=== PATIENT | female | born 1990 ===

== ENCOUNTER 2018-03-29 14:07 | Emergency (ER) | payer SELFPAY ==
[2018-03-29] MEDS ORDERED: Sodium Chloride 0.9% 1,000 ML IV STA (14:59)
--- NOTE | 2018-03-29 15:03 | ED PDOC ---
Arrival/HPI - General Time Seen by Provider: 03/29/18 14:45 Historian: Patient - History of Present Illness Narrative History of Present Illness (Text): 03/29/18 15:00 27yo female with no PMhx who present with complaint of nonbloody/billious vomiting x 10 and 2episodes of diarrhea with crampy abdominal pain since this morning. Notes that she ate outside, the night prior and thinks she have "food poison". +chills. States she is unable to keep anything down. Denies fever, melena, hematemesis, hematochezia, sick contact, travel, urinary symptoms. Past Medical History - Provider Review Nursing Documentation Reviewed: Yes - Past History Past History: No Previous - Tetanus Immunization Tetanus Immunization: Unknown - Musculoskeletal/Rheumatological Hx Falls: No - Psychiatric Hx Substance Use: No - Past Surgical History Past Surgical History: No Previous - Suicidal Assessment Feels Threatened In Home Enviroment: No Family/Social History - Physician Review Nursing Documentation Reviewed: Yes Family/Social History: Unknown Family HX Smoking Status: Never Smoked Hx Alcohol Use: No Hx Substance Use: No Hx Substance Use Treatment: No Allergies/Home Meds Allergies/Adverse Reactions: Allergies No Known Allergies Allergy (Verified 12/22/12 12:36) Review of Systems - Physician Review All systems were reviewed & negative as marked: Yes - Review of Systems Constitutional: Normal Eyes: Normal ENT: Normal Respiratory: Normal Cardiovascular: Normal Gastrointestinal: Abdominal Pain, Diarrhea, Nausea, Vomiting. absent: Constipation, Hematochezia, Hematemesis Genitourinary Female: Normal Musculoskeletal: Normal Skin: Normal Neurological: Normal Endocrine: Normal Hemo/Lymphatic: Normal Psychiatric: Normal Physical Exam Vital Signs Reviewed: Yes Vital Signs Temp Pulse Resp BP Pulse Ox 03/29/18 19:13 63 18 118/67 100 03/29/18 16:16 61 18 122/65 100 03/29/18 15:07 98.4 F 64 18 124/66 100 03/29/18 14:30 98.2 F 80 18 119/77 99 Temperature: Afebrile Blood Pressure: Normal Pulse: Regular Respiratory Rate: Normal Appearance: Positive for: Well-Appearing, Non-Toxic, Comfortable Pain Distress: None Mental Status: Positive for: Alert and Oriented X 3 - Systems Exam Head: Present: Atraumatic, Normocephalic Pupils: Present: PERRL Extroacular Muscles: Present: EOMI Conjunctiva: Present: Normal Mouth: Present: Moist Mucous Membranes Neck: Present: Normal Range of Motion Respiratory/Chest: Present: Clear to Auscultation, Good Air Exchange. No: Respiratory Distress, Accessory Muscle Use Cardiovascular: Present: Regular Rate and Rhythm, Normal S1, S2. No: Murmurs Abdomen: Present: Tenderness (Diffuse upper abdomen), Normal Bowel Sounds, Guarding (voluntary), Other (soft). No: Distention, Peritoneal Signs, Rebound, McBurney's Point Tender, Rovsing's Sign Present Back: Present: Normal Inspection Upper Extremity: Present: Normal Inspection. No: Cyanosis, Edema Lower Extremity: Present: Normal Inspection. No: Edema Neurological: Present: GCS=15, CN II-XII Intact, Speech Normal Skin: Present: Warm, Dry, Normal Color. No: Rashes Psychiatric: Present: Alert, Oriented x 3, Normal Insight, Normal Concentration Medical Decision Making ED Course and Treatment: 03/29/18 20:05 Pt presented for stated history. Lwukocytosis was noted with UTI. Her symptoms improved in ED with medication. She was noted to tolerate PO fluid in ED. Result was DW the pt. she was treated with keflex for UTI. Antitussive was given. she was advised to follow BRAT diet. REferred to her PMD. TRT ED for any new or worsening symptoms. ABDOMEN and PELVIS: Intraperitoneal space: Unremarkable. No free air. No significant fluid collection. Bones/joints: Mild scoliosis No acute fracture. No dislocation. Soft tissues: Unremarkable. Vasculature: Unremarkable. No abdominal aortic aneurysm. Lymph nodes: There are small, benign-appearing lymph nodes, probably reactive, most measuring 1 cm or smaller in the short axis. IMPRESSION: Compatible with a moderate pattern colitis in the correct clinical situation. Statistically, infectious or inflammatory. Ischemia cannot be excluded. No abscess. Cystitis is possible - Lab Interpretations Lab Results: 03/29/18 15:45 03/29/18 15:45 Lab Results 03/29/18 15:45: Sodium 142, Potassium 3.6, Chloride 101, Carbon Dioxide 26, Anion Gap 18, BUN 12, Creatinine 0.6 L, Est GFR ( Amer) > 60, Est GFR ( Non-Af Amer) > 60, Random Glucose 135 H, Calcium 9.8, Total Bilirubin 0.6, AST 26, ALT 25, Alkaline Phosphatase 69, Total Protein 8.0, Albumin 4.7, Globulin 3.2, Albumin/Globulin Ratio 1.5, Lipase 103 03/29/18 15:45: PT 12.4, INR 1.09 H, APTT 22.9 L 03/29/18 15:45: WBC 20.4 H, RBC 4.47, Hgb 14.0, Hct 40.1, MCV 89.7, MCH 31.3, MCHC 34.9, RDW 12.2, Plt Count 305, MPV 10.5, Gran % 93.0 H, Lymph % (Auto) 4.5 L, [place] % (Auto) 2.5, Eos % (Auto) 0.0 L, Baso % (Auto) 0.0, Gran # 18.98 H, Lymph # (Auto) 0.9 L, [place] # (Auto) 0.5, Eos # (Auto) 0.0, Baso # (Auto) 0.01, Neutrophils % (Manual) 94 H, Lymphocytes % (Manual) 3 L, Monocytes % (Manual) 3 , Platelet Evaluation Normal 03/29/18 13:36: Urine Color Yellow, Urine Appearance Cloudy, Urine pH 6.0, Ur Specific [place] >= 1.030, Urine Protein 100 H, Urine Glucose (UA) Negative, Urine Ketones >=80, Urine Blood Large H, Urine Nitrate Positive H, Urine Bilirubin Negative, Urine Urobilinogen 0.2, Ur Leukocyte Esterase Moderate H, Urine RBC 2 - 5, Urine WBC 20 - 25, Ur Epithelial Cells 6 - 8, Urine Bacteria Mod - RAD Interpretation Radiology Orders: 03/29/18 16:00 ABD & PELVIS IV CONTRAST ONLY [CT] Stat - Medication Orders Current Medication Orders: Discontinued Medications Cephalexin Monohydrate (Keflex) 500 mg PO STAT STA PRN Reason: Protocol Stop: 03/29/18 20:09 Last Admin: 03/29/18 20:43 Dose: 500 mg Sodium Chloride (Sodium Chloride 0.9%) 1,000 mls @ 1,000 mls/hr IV .Q1H STA Stop: 03/29/18 15:58 Last Admin: 03/29/18 15:56 Dose: 1,000 mls/hr eMAR Start Stop Document 03/29/18 15:56 LA (Rec: 03/29/18 16:02 LA [id number]) Intravenous Solution Start Date 03/29/18 Start Time 15:57 End Date 03/29/18 End time 16:57 Total Infusion Time 60 Famotidine (Pepcid 20mg/50ml Premix) 20 mg in 50 mls @ 100 mls/hr IVPB STAT STA Stop: 03/29/18 16:56 Last Admin: 03/29/18 16:39 Dose: 100 mls/hr eMAR Start Stop Document 03/29/18 16:39 LA (Rec: 03/29/18 16:39 LA [id number]) Intravenous Solution Start Date 03/29/18 Start Time 16:39 End Date 03/29/18 End time 17:09 Total Infusion Time 30 Metoclopramide HCl (Reglan) 10 mg IVP STAT STA Stop: 03/29/18 20:29 Last Admin: 03/29/18 20:42 Dose: 10 mg IVP Administration Document 03/29/18 20:42 LA (Rec: 03/29/18 20:42 LA [id number]) Charges for Administration # of IVP Administrations 1 Morphine Sulfate (Morphine) 2 mg IV STAT STA Stop: 03/29/18 20:23 Last Admin: 03/29/18 20:42 Dose: 2 mg eMAR Start Stop Document 03/29/18 20:42 LA (Rec: 03/29/18 20:43 LA [id number]) Intravenous Solution Start Date 03/29/18 Start Time 20:42 End Date 03/29/18 MAR Pain Assessment Document 03/29/18 20:42 LA (Rec: 03/29/18 20:43 LA [id number]) Pain Reassessment Is this a pain reassessment? No Sleep Is patient sleeping during reassessment? No Presence of Pain Presence of Pain Yes Pain Scale Used Pain Scale Used Numeric Location Pain Location Body Site Abdomen Description Description Intermittent Pain Behavior Guarding Ondansetron HCl (Zofran Inj) 4 mg IVP STAT STA Stop: 03/29/18 15:00 Last Admin: 03/29/18 15:55 Dose: 4 mg IVP Administration Document 03/29/18 15:55 LA (Rec: 03/29/18 15:55 LA [id number]) Charges for Administration # of IVP Administrations 1 Ondansetron HCl (Zofran Inj) 4 mg IVP STAT STA Stop: 03/29/18 19:26 Last Admin: 03/29/18 19:52 Dose: 4 mg IVP Administration Document 03/29/18 19:52 LIBIA (Rec: 03/29/18 19:52 LA [id number]) Charges for Administration # of IVP Administrations 1 Disposition/Present on Arrival - Present on Arrival Any Indicators Present on Arrival: No History of DVT/PE: No History of Uncontrolled Diabetes: No Urinary Catheter: No History Surgical Site Infection Following: None - Disposition Have Diagnosis and Disposition been Completed?: Yes Diagnosis: UTI (urinary tract infection), Colitis, Abdominal pain Disposition: HOME/ ROUTINE Disposition Time: 20:10 Patient Plan: Discharge Condition: STABLE Discharge Instructions (ExitCare): Urinary Tract Infections in Adults, Acute Abdomen (Belly Pain), Adult (DC), Nausea and Vomiting, Adult Additional Instructions: Follow BLAND diet and drink plenty of fluid Return to ED for any new or worsening symptoms Prescriptions: Cephalexin [Keflex] 500 mg PO QID #28 capsule Famotidine [Pepcid] 40 mg PO DAILY #15 tab Ondansetron ODT [Zofran ODT] 4 mg PO Q6 #8 odt Referrals: Jami Prather MD [Primary Care Provider] - Follow up with primary Forms: WORK NOTE
[2018-03-29 15:16] VITALS: RESP 18; TEMP 98.4; O2SAT 100; BMI 30.9
[2018-03-29 15:56] LABS: URINE BILIRUBIN NEGATIVE (NEGATIVE); URINE BLOOD LARGE (NEGATIVE); URINE GLUCOSE (UA) NEGATIVE (NEGATIVE); URINE LEUKOCYTE ESTERASE MODERATE Leu/uL (NEGATIVE); URINE PROTEIN 100 mg/dL (<30 mg/dL); URINE UROBILINOGEN 0.2 E.U./dL (<1 E.U./dL)
[2018-03-29 15:57] LABS: URINE APPEARANCE CLOUDY (CLEAR); URINE COLOR YELLOW (YELLOW)
[2018-03-29 15:59] LABS: URINE BACTERIA MOD (NEG); URINE WBC 20 - 25 /hpf (0-6)
[2018-03-29 15:59] LABS: BASO # 0.01 K/mm3 (0.0-2.0); GRAN # 18.98 (1.4-6.5); LYMPH # 0.9 (1.2-3.4); LYMPH % 4.5 % (22.0-35.0); MEAN CELL VOLUME 89.7 fl (80.0-105.0); MEAN CORPUSCULAR HEMOGLOBIN 31.3 pg (25.0-35.0); MEAN CORPUSCULAR HGB CONC 34.9 g/dl (31.0-37.0); MEAN PLATELET VOLUME 10.5 fl (7.0-11.0); MONO # 0.5 (0.1-0.6); MONO % 2.5 % (1.0-6.0); PLATELET COUNT 305 10^3/uL (120.0-450.0); RBC 4.47 10^6/uL (3.5-6.1); RED CELL DISTRIBUTION WIDTH 12.2 % (11.5-14.5); WHITE BLOOD COUNT 20.4 10^3/ul (4.5-11.0)
[2018-03-29 16:08] LABS: INR 1.09 (0.93-1.08); PARTIAL THROMBOPLASTIN TIME 22.9 Seconds (25.1-36.5); PROTHROMBIN TIME 12.4 SECONDS (9.4-12.5)
[2018-03-29 16:13] LABS: ALB/GLOB RATIO 1.5 (1.1-1.8); ALBUMIN 4.7 g/dL (3.0-4.8); ALT/SGPT 25 U/L (7-56); AST/SGOT 26 U/L (14-36); BLOOD UREA NITROGEN 12 mg/dL (7-21); CALCIUM 9.8 mg/dL (8.4-10.5); GFR AFRICAN-AMERICAN > 60; GFR NON-AFRICAN AMERICAN > 60; LIPASE 103 U/L (23-300)
[2018-03-29 16:14] LABS: LYMPHOCYTE 3 % (22.0-35.0); MONOCYTE 3 % (1.0-6.0); NEUTROPHIL 94 % (50.0-70.0)
[2018-03-29 16:15] LABS: PLATELET ESTIMATE NORMAL (NORMAL)
[2018-03-29] MEDS ORDERED: Famotidine 20mg/50ml 20 MG/50 ML BAG IVPB STA (16:27)
[2018-03-29] MEDS ORDERED: Iohexol 350 MG/100 ML VIAL ONE (17:51)
[2018-03-29 19:13] VITALS: BP 118/67; PULSE 63
[2018-03-29] MEDS ORDERED: Morphine 2 mg/ml ISec IVP STA (20:19)
[2018-03-29] MEDS ORDERED: Morphine 4 mg/ml ISec IV STA (20:22)
--- NOTE | 2018-03-30 08:20 | CT ---
PROCEDURE: CT Abdomen and Pelvis with contrast HISTORY: abdominal pain COMPARISON: None. TECHNIQUE: Contrast dose: 100 cc of Omni 350 Radiation dose: Total exam DLP = 216 mGy-cm. This CT exam was performed using one or more of the following dose reduction techniques: Automated exposure control, adjustment of the mA and/or kV according to patient size, and/or use of iterative reconstruction technique. FINDINGS: LOWER THORAX: Unremarkable. LIVER: Unremarkable. No gross lesion or ductal dilatation. GALLBLADDER AND BILE DUCTS: Unremarkable. PANCREAS: Unremarkable. No gross lesion or ductal dilatation. SPLEEN: Unremarkable. ADRENALS: Unremarkable. No mass. KIDNEYS AND URETERS: Unremarkable. No hydronephrosis. No solid mass. VASCULATURE: Unremarkable. No aortic aneurysm. BOWEL: There is no oral contrast which limits evaluation of the bowel. There is a suggestion of mural thickening throughout the colon suspicious for colitis. Clinical correlation is suggest APPENDIX: Normal appendix. PERITONEUM: There is minimal free fluid in the cul-de-sac LYMPH NODES: Unremarkable. No enlarged lymph nodes. BLADDER: There is mild mural thickening. This could represent cystitis. REPRODUCTIVE: Unremarkable. BONES: No acute fracture. OTHER FINDINGS: The report concurs with the preliminary [facility] report IMPRESSION: There is no oral contrast which limits evaluation of the bowel. There is a suggestion of mural thickening throughout the colon suspicious for colitis. Clinical correlation is suggest Mild mural thickening in the urinary bladder. Possible cystitis
== END 2018-03-29 20:55 | disposition home or self-care (01) ==
LOC: ED 14:07
DX: N39.0 Urinary tract infection, site not specified (principal); K52.9 Noninfective gastroenteritis and colitis, unspecified; R10.9 Unspecified abdominal pain
CPT/HCPCS: 74177; 80053; 81001; 83690; 85025; 85610; 85730; 87086; 96361; 96365; 96375; 96376; 99284; J2270; J2405; J2765; J7040; Q9967

== ENCOUNTER 2018-10-24 18:29 | Emergency (ER) | payer SELFPAY ==
[2018-10-24 18:58] VITALS: BMI 25.9
[2018-10-24 19:01] VITALS: RESP 18; TEMP 98.1
[2018-10-24] MEDS ORDERED: Sodium Chloride 0.9% 1,000 ML IV STA (19:07)
[2018-10-24 20:25] LABS: BASO # 0.01 K/mm3 (0.0-2.0); BASO % 0.1 % (0.0-3.0); GRAN # 16.57 (1.4-6.5); GRAN % 94.1 % (50.0-68.0); LYMPH # 0.8 (1.2-3.4); LYMPH % 4.4 % (22.0-35.0); MEAN CELL VOLUME 90.4 fl (80.0-105.0); MEAN CORPUSCULAR HEMOGLOBIN 31.1 pg (25.0-35.0); MEAN CORPUSCULAR HGB CONC 34.4 g/dl (31.0-37.0); MEAN PLATELET VOLUME 9.9 fl (7.0-11.0); MONO # 0.3 (0.1-0.6); MONO % 1.4 % (1.0-6.0); PLATELET COUNT 292 10^3/uL (120.0-450.0); RBC 4.18 10^6/uL (3.5-6.1); RED CELL DISTRIBUTION WIDTH 12.3 % (11.5-14.5); WHITE BLOOD COUNT 17.6 10^3/uL (4.5-11.0)
[2018-10-24 20:29] LABS: URINE APPEARANCE CLEAR (CLEAR); URINE BILIRUBIN NEGATIVE (NEGATIVE); URINE BLOOD TRACE-INTACT (NEGATIVE); URINE COLOR YELLOW (YELLOW); URINE GLUCOSE (UA) NEGATIVE (NEGATIVE); URINE LEUKOCYTE ESTERASE NEGATIVE Leu/uL (NEGATIVE); URINE PROTEIN TRACE mg/dL (<30 mg/dL); URINE UROBILINOGEN 0.2 E.U./dL (<1 E.U./dL)
[2018-10-24 20:36] LABS: ALB/GLOB RATIO 1.4 (1.1-1.8); ALBUMIN 4.6 g/dL (3.0-4.8); ALT/SGPT 32 U/L (7-56); AMYLASE 109 U/L (35-125); AST/SGOT 33 U/L (14-36); BLOOD UREA NITROGEN 16 mg/dL (7-21); CALCIUM 9.3 mg/dL (8.4-10.5); GFR NON-AFRICAN AMERICAN > 60; LIPASE 41 U/L (23-300)
[2018-10-24 20:37] LABS: URINE RBC 0 - 2 /hpf (0-2); URINE WBC NEGATIVE /hpf (0-6)
[2018-10-24] MEDS ORDERED: Iohexol 350 MG/100 ML VIAL ONE (20:47)
[2018-10-24 21:06] LABS: LYMPHOCYTE 5 % (22.0-35.0); MONOCYTE 2 % (1.0-6.0); NEUTROPHIL 93 % (50.0-70.0)
[2018-10-24 21:07] LABS: PLATELET ESTIMATE NORMAL (NORMAL)
[2018-10-24 23:11] VITALS: BP 128/78; PULSE 82; O2SAT 99
--- NOTE | 2018-10-25 00:59 | ED PDOC ---
Arrival/HPI - General Chief Complaint: Abdominal Pain Historian: Patient - History of Present Illness Narrative History of Present Illness (Text): 10/24/18 19:00 28 year old female, with no significant past medical history, who presents to the Emergency department complaining of diffuse abdominal pain, vomiting x1 day, and 2-3 episodes of diarrhea. Patient denies any blood in stool or vomit. Patient states she has had episodes similar to this in past. Patient states she does not take any medication for her stomach. Patient denies recent travel, feve r, dysuria, hematuria, or any other complaints. Time/Duration: 24 hours (patient notes vomiting x1 day), Other (patient notes diffuse abdominal pain and 2-3 episodes of diarrhea ) Symptom Onset: Sudden Symptom Course: Unchanged Activities at Onset: Light Past Medical History - Provider Review Nursing Documentation Reviewed: Yes - Travel History Have you recently traveled outside [place] w/in the past 3 mons?: No - Past History Past History: No Previous - Infectious Disease Hx of Infectious Diseases: None - Tetanus Immunization Tetanus Immunization: Unknown - Cardiac Hx Cardiac Disorders: No - Pulmonary Hx Respiratory Disorders: No - Neurological Hx Neurological Disorder: No - HEENT Hx HEENT Disorder: No - Renal Hx Renal Disorder: No - Endocrine/Metabolic Hx Endocrine Disorders: No - Hematological/Oncological Hx Blood Disorders: No - Integumentary Hx Dermatological Disorder: No - Musculoskeletal/Rheumatological Hx Musculoskeletal Disorders: No - Gastrointestinal Hx Gastrointestinal Disorders: No - Genitourinary/Gynecological Hx Genitourinary Disorders: No - Psychiatric Hx Psychophysiologic Disorder: No Hx Substance Use: No - Past Surgical History Past Surgical History: No Previous - Anesthesia Hx Anesthesia: No - Suicidal Assessment Feels Threatened In Home Enviroment: No Family/Social History - Physician Review Nursing Documentation Reviewed: Yes Family/Social History: No Known Family HX Smoking Status: Never Smoked Hx Alcohol Use: No Hx Substance Use: No Hx Substance Use Treatment: No Allergies/Home Meds Allergies/Adverse Reactions: Allergies No Known Allergies Allergy (Verified 10/24/18 18:58) Review of Systems - Physician Review All systems were reviewed & negative as marked: Yes - Review of Systems Constitutional: Normal. absent: Fevers Gastrointestinal: Abdominal Pain (Patient notes diffuse abdominal pain ), Diarrhea (Pt reports 2-3 episodes of diarrhea. no blood in stool. ), Vomiting (Patient notes vomiting x1 day. no blood in vomit. ). absent: Normal Genitourinary Female: Normal. absent: Dysuria, Hematuria Physical Exam Vital Signs Reviewed: Yes Vital Signs Temp Pulse Resp BP Pulse Ox 10/24/18 23:06 98.1 F 82 18 128/78 99 10/24/18 18:58 98.1 F 81 18 115/70 98 Temperature: Afebrile Blood Pressure: Normal Pulse: Regular Respiratory Rate: Normal Appearance: Positive for: Well-Appearing, Non-Toxic Pain Distress: Mild Mental Status: Positive for: Alert and Oriented X 3 - Systems Exam Head: Present: Atraumatic, Normocephalic Pupils: Present: PERRL Extroacular Muscles: Present: EOMI Conjunctiva: Present: Normal Mouth: Present: Moist Mucous Membranes Neck: Present: Normal Range of Motion Respiratory/Chest: Present: Clear to Auscultation, Good Air Exchange. No: Respiratory Distress, Accessory Muscle Use Cardiovascular: Present: Regular Rate and Rhythm, Normal S1, S2. No: Murmurs Abdomen: Present: Tenderness (diffuse abdominal tenderness. mild distress. actively vomiting. ) Back: Present: Normal Inspection Upper Extremity: Present: Normal Inspection. No: Cyanosis, Edema Lower Extremity: Present: Normal Inspection. No: Edema Neurological: Present: GCS=15, CN II-XII Intact, Speech Normal Skin: Present: Warm, Dry, Normal Color. No: Rashes Psychiatric: Present: Alert, Oriented x 3, Normal Insight, Normal Concentration Medical Decision Making ED Course and Treatment: 10/24/18 19:00 Impression: 28 year old female presents to the Emergency department complaining of diffuse abdominal pain, vomiting x1 day, and 2-3 episodes of diarrhea. Plan: -- CT of Abd/Pelvis IV contrast only -- Labs -- CBC (with differential) -- Pepcid 20mg IVP -- Reglan 10mg IVP -- IV fluids -- Zofran Inj 8mg IVP -- Urine culture -- ED NPO (ED order only) -- POC Urine test -- Influenza A B -- Urinalysis W/Micro -- Reassess and disposition Prior Visits: Notes and results from previous visits were reviewed. Patient was last seen in the emergency department on 03/29/18 with complaint of nonbloody/billious vomiting x 10 and 2episodes of diarrhea with crampy abdominal pain since that morning. Patient was discharged home in stable condition with diagnosis of UTI, colitis and abdominal pain, given diet instructions for care, and directed to follow up with PMD. Prescriptions: Cephalexin [Keflex] 500 mg PO QID #28 capsule Famotidine [Pepcid] 40 mg PO DAILY #15 tab Ondansetron ODT [Zofran ODT] 4 mg PO Q6 #8 odt Progress Notes: 10/24/18 On reevaluation, patient is no longer vomiting and says she feels better. CAT scan reviewed with her. Pt will be discharged with antibiotics and will follow up with PMD. - Lab Interpretations Lab Results: 10/24/18 20:15 10/24/18 20:15 Lab Results 10/24/18 20:15: Influenza Typ A,B (EIA) Negative for flu a/b 10/24/18 20:15: Sodium 141, Potassium 3.6, Chloride 104, Carbon Dioxide 24, Anion Gap 17, BUN 16, Creatinine 0.6 L, Est GFR ( Amer) > 60, Est GFR (Non-Af Amer) > 60, Random Glucose 116 H, Calcium 9.3, Magnesium 1.6 L, Total Bilirubin 0.7, AST 33, ALT 32, Alkaline Phosphatase 74, Total Protein 8.0, Albumin 4.6, Globulin 3.4, Albumin/Globulin Ratio 1.4, Amylase 109, Lipase 41 10/24/18 20:15: Urine Color Yellow, Urine Appearance Clear, Urine pH 6.0, Ur Spe cific [place] >= 1.030, Urine Protein Trace H, Urine Glucose (UA) Negative, Urine Ketones >=80, Urine Blood Trace-intact H, Urine Nitrate Negative, Urine Bilirubin Negative, Urine Urobilinogen 0.2, Ur Leukocyte Esterase Negative, Urine RBC 0 - 2, Urine WBC Negative, Ur Epithelial Cells 1 - 3 10/24/18 20:15: WBC 17.6 H, RBC 4.18, Hgb 13.0, Hct 37.8, MCV 90.4, MCH 31.1, MCHC 34.4, RDW 12.3, Plt Count 292, MPV 9.9, Gran % 94.1 H, Lymph % (Auto) 4.4 L , [place] % (Auto) 1.4, Eos % (Auto) 0.0 L, Baso % (Auto) 0.1, Gran # 16.57 H, Lymph # (Auto) 0.8 L, [place] # (Auto) 0.3, Eos # (Auto) 0.0, Baso # (Auto) 0.01, Neutrophils % (Manual) 93 H, Lymphocytes % (Manual) 5 L, Monocytes % (Manual) 2, Platelet Evaluation Normal - RAD Interpretation Narrative RAD Interpretations (Text): CT of Abd/Pelvis IV contrast only reviewed by radiologist, shows: Exam Date: Oct 24, 2018 9:22:06 PM FINDINGS: LUNG BASES: The lung bases appear clear. No pleural effusions are seen. LIVER: Unremarkable. GALLBLADDER AND BILE DUCTS: The gallbladder appears within normal limits. No radioopaque gallstones are seen. No biliary ductal dilatation is evident. PANCREAS: Unremarkable. SPLEEN: Unremarkable. ADRENAL GLANDS: Unremarkable. KIDNEYS, URETERS, AND BLADDER: The kidneys appear within normal limits. There is no hydronephrosis or hydroureter. No urinary calculi are seen. STOMACH AND BOWEL: Small hiatal hernia is noted. Thick walled fluid filled duodenum and loops of jejunum as well as ileum compatible with enteritis. Thick walled fluid filled colon with thumbprinting is noted with involvement of all segments compatible with diffuse pancolitis. Infectious and inflammatory etiologies are considered. APPENDIX: No evidence of acute appendicitis on CT examination. PERITONEUM: No free fluid. No free air. LYMPH NODES: No lymphadenopathy is evident. REPRODUCTIVE: Uterus and ovaries are unremarkable. VASCULATURE: No evidence of abdominal aortic aneurysm. BONES: No aggressive appearing osseous lesion. No acute osseous pathology evident. MISCELLANEOUS: Small amount of fluid in the pelvic cul-de-sac. IMPRESSION: 1. Small hiatal hernia. 2. Enteritis and pancolitis. Infectious and inflammatory etiologies are considered. 3. Small amount of fluid in the pelvic cul-de-sac. Radiology Orders: 10/24/18 19:32 ABD & PELVIS IV CONTRAST ONLY [CT] Stat Lumber Piler: Radiologist - Medication Orders Current Medication Orders: Discontinued Medications Famotidine (Pepcid) 20 mg IVP STAT STA Stop: 10/24/18 19:08 Last Admin: 10/24/18 19:59 Dose: 20 mg IVP Administration Document 10/24/18 19:59 EQ (Rec: 10/24/18 19:59 EQ [id number]) Charges for Administration # of IVP Administrations 1 Sodium Chloride (Sodium Chloride 0.9%) 1,000 mls @ 1,000 mls/hr IV .Q1H STA Stop: 10/24/18 20:06 Last Admin: 10/24/18 19:58 Dose: 1,000 mls/hr eMAR Start Stop Document 10/24/18 19:58 EQ (Rec: 10/24/18 19:59 EQ [id number]) Intravenous Solution Start Date 10/24/18 Start Time 19:58 Metoclopramide HCl (Reglan) 10 mg IVP STAT STA Stop: 10/24/18 19:48 Last Admin: 10/24/18 19:59 Dose: 10 mg IVP Administration Document 10/24/18 19:59 EQ (Rec: 10/24/18 19:59 EQ [id number]) Charges for Administration # of IVP Administrations 1 Ondansetron HCl (Zofran Inj) 8 mg IVP STAT STA Stop: 10/24/18 19:32 Last Admin: 10/24/18 19:59 Dose: 8 mg IVP Administration Document 10/24/18 19:59 EQ (Rec: 10/24/18 19:59 EQ [id number]) Charges for Administration # of IVP Administrations 1 - Scribe Statement The provider has reviewed the documentation as recorded by the Scribe Carmen Vanessa All medical record entries made by the Scribe were at my direction and personally dictated by me. I have reviewed the chart and agree that the record accurately reflects my personal performance of the history, physical exam, medical decision making, and the department course for this patient. I have also personally directed, reviewed, and agree with the discharge instructions and disposition. Disposition/Present on Arrival - Present on Arrival Any Indicators Present on Arrival: No History of DVT/PE: No History of Uncontrolled Diabetes: No Urinary Catheter: No History of Decub. Ulcer: No History Surgical Site Infection Following: None - Disposition Have Diagnosis and Disposition been Completed?: Yes Diagnosis: Colitis Disposition: HOME/ ROUTINE Disposition Time: 22:25 Condition: IMPROVED Discharge Instructions (ExitCare): Acute Abdomen (Belly Pain), Adult (DC), Nausea and Vomiting, Adult (DC) Additional Instructions: CAMERON MARCANO, thank you for letting us take care of you today. Your provider was El Passafaro DO and you were treated for NAUSEA, ABDOMINAL PAIN. The emergency medical care you received today was directed at your acute symptoms. If you were prescribed any medication, please fill it and take as directed. It may take several days for your symptoms to resolve. Return to the Emergency Department if your symptoms worsen, do not improve, or if you have any other problems. Please contact your doctor or call one of the physicians/clinics you have been referred to that are listed on the Patient Visit Information form that is included in your discharge packet. Bring any paperwork you were given at discharge with you along with any medications you are taking to your follow up visit. Our treatment cannot replace ongoing medical care by a primary care provider outside of the emergency department. Thank you for allowing the [facility] team to be part of your care today. Take all prescribed as directed and follow up with your primary care doctor this week for re-evaluation and further management. Prescriptions: Ciprofloxacin [Cipro] 500 mg PO BID #20 tab Famotidine [Pepcid] 20 mg PO BID #20 tab Metronidazole [Flagyl] 500 mg PO Q8 #30 tablet Ondansetron ODT [Zofran ODT] 8 mg PO Q8 PRN #20 odt PRN Reason: Nausea/Vomiting Referrals: [facility], [Non-Staff] - Follow up with primary Forms: [employer] (Y[place]i)
--- NOTE | 2018-10-25 10:24 | CT ---
Date of service: 10/24/2018 PROCEDURE: CT Abdomen and Pelvis with and without intravenous contrast HISTORY: upper abdominal pain with vomiting COMPARISON: None. TECHNIQUE: Axial images of the abdomen were obtained in the pre contrast, portal venous and delayed phases of enhancement. Coronal and sagittal reformats were generated. Contrast dose: Radiation dose: Total exam DLP = 284.05 mGy-cm. This CT exam was performed using one or more of the following dose reduction techniques: Automated exposure control, adjustment of the mA and/or kV according to patient size, and/or use of iterative reconstruction technique. FINDINGS: LOWER THORAX: Unremarkable. LIVER: Unremarkable. No gross lesion or ductal dilatation. GALLBLADDER AND BILE DUCTS: Unremarkable. PANCREAS: Unremarkable. No gross lesion or ductal dilatation. SPLEEN: Unremarkable. ADRENALS: Unremarkable. No mass. KIDNEYS AND URETERS: Unremarkable. No hydronephrosis. No solid mass. VASCULATURE: Unremarkable. No aortic aneurysm. No aortic atherosclerotic calcification or mural plaque present. BOWEL: Unremarkable. No obstruction. No gross mural thickening. APPENDIX: Normal appendix. PERITONEUM: Unremarkable. No free fluid. No free air. LYMPH NODES: Unremarkable. No enlarged lymph nodes. BLADDER: Unremarkable. REPRODUCTIVE: Unremarkable. BONES: No acute fracture. OTHER FINDINGS: None. IMPRESSION: Unremarkable pre and post contrast enhanced CT of the abdomen and pelvis.
== END 2018-10-24 23:33 | disposition home or self-care (01) ==
LOC: ED 18:29
DX: K52.9 Noninfective gastroenteritis and colitis, unspecified (principal)
CPT/HCPCS: 74177; 80053; 81001; 82150; 83690; 83735; 85025; 87086; 87804; 96374; 96375; 99283; J2405; J2765; J7030; Q9967

== ENCOUNTER 2018-12-14 10:58 | Emergency (ER) | payer MEDICAID ==
[2018-12-14 11:21] VITALS: RESP 18; BMI 26.9
[2018-12-14] MEDS ORDERED: Sodium Chloride 0.9% 1,000 ML IV STA (12:03)
--- NOTE | 2018-12-14 12:11 | ED PDOC ---
Arrival/HPI - General Chief Complaint: GI Problem Time Seen by Provider: 12/14/18 11:11 Historian: Patient - History of Present Illness Narrative History of Present Illness (Text): 12/14/18 12:07 A 28 year old female, with no significant past medical history, A0 (currently 9 weeks ), presents to the emergency department complaining of abdominal pain, vomiting, and diarrhea since this morning. Patient reports she ate a turkey sandwich at [employer] yesterday, however is uncertain if this is what caused symptoms. Also, patient mentions she recently was seen [place] [facility], and was diagnosed with hyperemesis, and also had Ultrasound performed due to . Was given antibiotics as well for UTI, however was not prescribed anti-nausea medication. Patient denies any other complaints at this time. Patient states she has not yet seen her YARD HAND. Time/Duration: Other (symptoms starting this morning.) Past Medical History - Provider Review Nursing Documentation Reviewed: Yes - Past History Past History: No Previous - Infectious Disease Hx of Infectious Diseases: None - Tetanus Immunization Tetanus Immunization: Unknown - Cardiac Hx Cardiac Disorders: No - Pulmonary Hx Respiratory Disorders: No - Neurological Hx Neurological Disorder: No - HEENT Hx HEENT Disorder: No - Renal Hx Renal Disorder: No - Endocrine/Metabolic Hx Endocrine Disorders: No - Hematological/Oncological Hx Blood Disorders: No - Integumentary Hx Dermatological Disorder: No - Musculoskeletal/Rheumatological Hx Musculoskeletal Disorders: No - Gastrointestinal Hx Gastrointestinal Disorders: No - Genitourinary/Gynecological Hx Genitourinary Disorders: No - Psychiatric Hx Psychophysiologic Disorder: No Hx Substance Use: No - Past Surgical History Past Surgical History: No Previous - Anesthesia Hx Anesthesia: No - Suicidal Assessment Feels Threatened In Home Enviroment: No Family/Social History - Physician Review Nursing Documentation Reviewed: Yes Family/Social History: No Known Family HX Smoking Status: Never Smoked Hx Alcohol Use: No Hx Substance Use: No Hx Substance Use Treatment: No Allergies/Home Meds Allergies/Adverse Reactions: Allergies No Known Allergies Allergy (Verified 12/14/18 11:21) Review of Systems - Physician Review All systems were reviewed & negative as marked: Yes - Review of Systems Constitutional: absent: Fevers, Night Sweats Cardiovascular: absent: Chest Pain Gastrointestinal: Abdominal Pain, Nausea, Vomiting Physical Exam Vital Signs Reviewed: Yes Vital Signs Temp Pulse Resp BP Pulse Ox 12/14/18 11:08 97.8 F 74 18 121/78 98 Temperature: Afebrile Blood Pressure: Normal Pulse: Regular Respiratory Rate: Normal Appearance: Positive for: Well-Appearing, Non-Toxic, Comfortable Pain Distress: None Mental Status: Positive for: Alert and Oriented X 3 - Systems Exam Head: Present: Atraumatic, Normocephalic Pupils: Present: PERRL Extroacular Muscles: Present: EOMI Conjunctiva: Present: Normal Mouth: Present: Dry Neck: Present: Normal Range of Motion Respiratory/Chest: Present: Clear to Auscultation, Good Air Exchange. No: Respiratory Distress, Accessory Muscle Use Cardiovascular: Present: Regular Rate and Rhythm, Normal S1, S2. No: Murmurs Abdomen: Present: Tenderness (tenderness to palpation). No: Distention, Peritoneal Signs Back: Present: Normal Inspection. No: CVA Tenderness Upper Extremity: Present: Normal Inspection. No: Cyanosis, Edema Lower Extremity: Present: Normal Inspection. No: Edema Neurological: Present: GCS=15, CN II-XII Intact, Speech Normal Skin: Present: Warm, Dry, Normal Color. No: Rashes Psychiatric: Present: Alert, Oriented x 3, Normal Insight, Normal Concentration Medical Decision Making ED Course and Treatment: 12/14/18 12:10 Impression: 28 year old female with abdominal pain, vomiting, and diarrhea. Plan: -- Labs -- Reglan -- IV Fluids -- Urinalysis -- Reassess and disposition Prior Visits: Notes and results from previous visits were reviewed. Patient was last seen here in the emergency department on 10/24/2018 for diffuse abdominal pain and vomiting. Patient was discharged home. Progress Notes: - Medication Orders Current Medication Orders: Sodium Chloride (Sodium Chloride 0.9%) 1,000 mls @ 999 mls/hr IV .Q1H1M STA Stop: 12/14/18 13:03 Metoclopramide HCl (Reglan) 10 mg IVP STAT STA Stop: 12/14/18 12:05 - Scribe Statement The provider has reviewed the documentation as recorded by the [address] Provider Scribe Attestation: All medical record entries made by the Scribe were at my direction and personally dictated by me. I have reviewed the chart and agree that the record accurately reflects my personal performance of the history, physical exam, medical decision making, and the department course for this patient. I have also personally directed, reviewed, and agree with the discharge instructions and disposition. Disposition/Present on Arrival - Present on Arrival Any Indicators Present on Arrival: No History of DVT/PE: No History of Uncontrolled Diabetes: No Urinary Catheter: No History of Decub. Ulcer: No History Surgical Site Infection Following: None - Disposition Have Diagnosis and Disposition been Completed?: Yes Diagnosis: Hyperemesis gravidarum, UTI (urinary tract infection) Disposition: HOME/ ROUTINE Disposition Time: 14:20 Patient Plan: Discharge Condition: IMPROVED Discharge Instructions (ExitCare): Nausea and Vomiting of (DC), Urinary Tract Infection, Adult (DC) Print Language: GERMAN Additional Instructions: All medical record entries made by the Scribe were at my direction and personally dictated by me. I have reviewed the chart and agree that the record accurately reflects my personal performance of the history, physical exam, medical decision making, and the department course for this patient. I have also personally directed, reviewed, and agree with the discharge instructions and disposition. Please follow up with your YARD HAND in 1 week Take medications as prescribed Prescriptions: Cephalexin [cephalexin] 500 mg PO BID #10 cap Doxylamine/Pyridoxine HCl (B6) [[place] 10-10 mg Tablet] 1 each PO PRN PRN #6 tablet. PRN Reason: Nausea/Vomiting Metoclopramide HCl [Reglan] 10 mg PO PRN PRN #10 tablet PRN Reason: Nausea/Vomiting Referrals: Ebony Bustillo MD [Staff Provider] - Follow up with primary Rj Finney MD [Medical Doctor] - Follow up with primary Forms: [employer] (Georgian), WORK NOTE
[2018-12-14 12:30] LABS: URINE BILIRUBIN NEGATIVE (NEGATIVE); URINE BLOOD SMALL (NEGATIVE); URINE GLUCOSE (UA) NEGATIVE (NEGATIVE); URINE LEUKOCYTE ESTERASE MODERATE Leu/uL (NEGATIVE); URINE PROTEIN 30 mg/dL (<30 mg/dL); URINE UROBILINOGEN 0.2 E.U./dL (<1 E.U./dL)
[2018-12-14 12:38] LABS: URINE APPEARANCE CLOUDY (CLEAR); URINE COLOR LIGHT YELLOW (YELLOW)
[2018-12-14 12:40] LABS: URINE BACTERIA LARGE /hpf; URINE WBC 20 - 25 /hpf (0-6)
[2018-12-14 12:44] LABS: BASO # 0.01 K/mm3 (0.0-2.0); BASO % 0.1 % (0.0-3.0); GRAN # 17.26 (1.4-6.5); GRAN % 93.7 % (50.0-68.0); HEMOGLOBIN 12.7 g/dL (12.0-16.0); LYMPH # 0.9 (1.2-3.4); LYMPH % 4.9 % (22.0-35.0); MEAN CELL VOLUME 88.8 fl (80.0-105.0); MEAN CORPUSCULAR HEMOGLOBIN 30.9 pg (25.0-35.0); MEAN CORPUSCULAR HGB CONC 34.8 g/dl (31.0-37.0); MEAN PLATELET VOLUME 9.9 fl (7.0-11.0); MONO # 0.2 (0.1-0.6); MONO % 1.3 % (1.0-6.0); PLATELET COUNT 322 10^3/uL (120.0-450.0); RBC 4.11 10^6/uL (3.5-6.1); RED CELL DISTRIBUTION WIDTH 12.3 % (11.5-14.5); WHITE BLOOD COUNT 18.4 10^3/uL (4.5-11.0)
[2018-12-14 12:49] LABS: ALB/GLOB RATIO 1.4 (1.1-1.8); ALBUMIN 4.5 g/dL (3.0-4.8); ALT/SGPT 26 U/L (7-56); AST/SGOT 27 U/L (14-36); BLOOD UREA NITROGEN 9 mg/dL (7-21); CALCIUM 9.9 mg/dL (8.4-10.5); GFR NON-AFRICAN AMERICAN > 60
[2018-12-14 13:21] LABS: LYMPHOCYTE 9 % (22.0-35.0); MONOCYTE 1 % (1.0-6.0)
[2018-12-14 13:22] LABS: NEUTROPHIL 90 % (50.0-70.0); PLATELET ESTIMATE NORMAL (NORMAL)
[2018-12-14 14:57] VITALS: BP 119/77; PULSE 79; TEMP 97.7; O2SAT 99
== END 2018-12-14 14:58 | disposition home or self-care (01) ==
LOC: ED 10:58
DX: O21.0 Mild hyperemesis gravidarum (principal); O23.41 Unspecified infection of urinary tract in pregnancy, first trimester; Z3A.09 9 weeks gestation of pregnancy
CPT/HCPCS: 80053; 81001; 81025; 85025; 86850; 86900; 87086; 96374; 99284; J2765; J7030

== ENCOUNTER 2018-12-15 20:49 | Inpatient (IN) | payer MEDICAID ==
[2018-12-15 20:50] VITALS: BMI 26.9
--- NOTE | 2018-12-15 21:32 | ED PDOC ---
Arrival/HPI - General Chief Complaint: Abdominal Pain Time Seen by Provider: 12/15/18 21:27 Historian: Patient - History of Present Illness Narrative History of Present Illness (Text): 12/15/18 21:31 Rox Burns is a 28 year old female, with no significant past medical history, currently 9 weeks , who presents to the emergency department complaining of vomiting. Patient was seen yesterday in the emergency department for nausea and vomiting, treated for hyperemesis gravidarum and UTI, and discharged home. Patient states since discharge, she has been experiencing nausea with multiple episodes of vomiting. Patient noted some blood in her vomit tonight. Patient denies any fever, chills, chest pain, shortness of breath, abdominal pain, urinary symptoms, back pain, neck pain, headache, dizziness, or any other complaints. Symptom Onset: Gradual Symptom Course: Unchanged Activities at Onset: Light Context: Home Past Medical History - Provider Review Nursing Documentation Reviewed: Yes - Past History Past History: No Previous - Infectious Disease Hx of Infectious Diseases: None - Tetanus Immunization Tetanus Immunization: Unknown - Cardiac Hx Cardiac Disorders: No - Pulmonary Hx Respiratory Disorders: No - Neurological Hx Neurological Disorder: No - HEENT Hx HEENT Disorder: No - Renal Hx Renal Disorder: No - Endocrine/Metabolic Hx Endocrine Disorders: No - Hematological/Oncological Hx Blood Disorders: No - Integumentary Hx Dermatological Disorder: No - Musculoskeletal/Rheumatological Hx Musculoskeletal Disorders: No - Gastrointestinal Hx Gastrointestinal Disorders: No - Genitourinary/Gynecological Hx Genitourinary Disorders: No - Psychiatric Hx Psychophysiologic Disorder: No Hx Substance Use: No - Past Surgical History Past Surgical History: No Previous - Anesthesia Hx Anesthesia: No - Suicidal Assessment Feels Threatened In Home Enviroment: No Family/Social History - Physician Review Nursing Documentation Reviewed: Yes Family/Social History: Unknown Family HX Smoking Status: Never Smoked Hx Alcohol Use: No Hx Substance Use: No Hx Substance Use Treatment: No Allergies/Home Meds Allergies/Adverse Reactions: Allergies No Known Allergies Allergy (Verified 12/15/18 21:02) Review of Systems - Physician Review All systems were reviewed & negative as marked: Yes - Review of Systems Constitutional: Normal. absent: Fevers Eyes: Normal ENT: Normal Respiratory: Normal. absent: SOB, Cough Cardiovascular: Normal. absent: Chest Pain Gastrointestinal: Nausea, Vomiting. absent: Diarrhea Genitourinary Female: Normal. absent: Dysuria, Frequency, Hematuria, Urine Output Changes Musculoskeletal: Normal. absent: Back Pain, Neck Pain Skin: Normal. absent: Rash Neurological: Normal. absent: Headache, Dizziness Endocrine: Normal Hemo/Lymphatic: Normal Psychiatric: Normal Physical Exam Vital Signs Reviewed: Yes Vital Signs Temp Pulse Resp BP Pulse Ox 12/15/18 21:03 98.7 F 74 17 110/62 99 Temperature: Afebrile Blood Pressure: Normal Pulse: Regular Respiratory Rate: Normal Appearance: Positive for: Well-Appearing, Non-Toxic, Comfortable Pain Distress: None Mental Status: Positive for: Alert and Oriented X 3 - Systems Exam Head: Present: Atraumatic, Normocephalic Pupils: Present: PERRL Extroacular Muscles: Present: EOMI Conjunctiva: Present: Normal Mouth: Present: Moist Mucous Membranes Neck: Present: Normal Range of Motion Respiratory/Chest: Present: Clear to Auscultation, Good Air Exchange. No: Respi ratory Distress, Accessory Muscle Use Cardiovascular: Present: Regular Rate and Rhythm, Normal S1, S2. No: Murmurs Abdomen: No: Tenderness, Distention, Peritoneal Signs Back: Present: Normal Inspection Upper Extremity: Present: Normal Inspection. No: Cyanosis, Edema Lower Extremity: Present: Normal Inspection. No: Edema Neurological: Present: GCS=15, CN II-XII Intact, Speech Normal Skin: Present: Warm, Dry, Normal Color. No: Rashes Psychiatric: Present: Alert, Oriented x 3, Normal Insight, Normal Concentration Medical Decision Making ED Course and Treatment: 12/15/18 21:31 Impression: 28 year old female complaining of nausea and multiple episodes of vomiting. Plan: -- Labs -- Rapid influenza -- IV fluids -- Reglan -- Reassess and disposition Prior Visits: Notes and results from previous visits were reviewed. Progress Notes: 12/15/18 22:31 Case discussed with certified surgical tech/first assistant fabrication engineer, who is aware and agrees to evaluate pt. 12/16/18 01:22 Transvaginal US: Uterus measures 9.8x6.8x7.5 cm. Anteverted uterus. Normal cervical length measuring 2.3 cm. Single, live intrauterine gestation. Estimated gestational age is 8 weeks and 3 days. No free fluid is noted in the pelvic cul-de-sac. Unremarkable right ovary. Unremarkable left ovary. Impression: Single, live intrauterine gestation. No abnormality is noted. Electronically signed on Dec 16, 2018 12:54:07 AM EST by: Jose Erwin M.D., Certified by [employer], Neuroradiology US Abdomen: Findings: Liver is normal in size measuring 13.5 cm. Normal gallbladder wall thickness measuring 1.5 mm. Unremarkable gallbladder. Dilated common bile duct measuring 3.6 mm. Unremarkable pancreas, IVC. Unremarkable aorta as visualized. Unremarkable spleen measuring 8 cm. Unremarkable right kidney measuring 8.8 cm. Unremarkable left kidney measuring 8.7 cm. Impression: Unremarkable exam. Electronically signed on Dec 16, 2018 1:02:45 AM EST by: Jose Erwin M.D., Certified by [employer], Neuroradiology 12/16/18 01:34 Case discussed with medical technicians fabrication engineer, who is aware and agrees with plan. 12/16/18 01:[address] Rodas, who is aware and agrees with plan. Accepts pt in to hospitalist service. Pt will go to [facility] observation for abdominal pain. - Lab Interpretations I have reviewed the lab results: Yes - RAD Interpretation Cubing Machine Tender: Radiologist - Scribe Statement The provider has reviewed the documentation as recorded by the Scribmarta Valles Provider Scribe Attestation: All medical record entries made by the Scribe were at my direction and personally dictated by me. I have reviewed the chart and agree that the record accurately reflects my personal performance of the history, physical exam, medical decision making, and the department course for this patient. I have also personally directed, reviewed, and agree with the discharge instructions and disposition. Disposition/Present on Arrival - Present on Arrival Any Indicators Present on Arrival: No History of DVT/PE: No History of Uncontrolled Diabetes: No Urinary Catheter: No History of Decub. Ulcer: No History Surgical Site Infection Following: None - Disposition Have Diagnosis and Disposition been Completed?: Yes Diagnosis: UTI (urinary tract infection), Abdominal pain Disposition: HOSPITALIZED Disposition Time: 01:35 Condition: GOOD
[2018-12-15] MEDS ORDERED: Sodium Chloride 0.9% 1,000 ML IV SCH (21:45)
[2018-12-15 21:58] LABS: BASO # 0.01 K/mm3 (0.0-2.0); BASO % 0.1 % (0.0-3.0); GRAN # 17.89 (1.4-6.5); GRAN % 90.6 % (50.0-68.0); HEMOGLOBIN 12.7 g/dL (12.0-16.0); LYMPH # 1.1 (1.2-3.4); LYMPH % 5.8 % (22.0-35.0); MEAN CELL VOLUME 88.2 fl (80.0-105.0); MEAN CORPUSCULAR HEMOGLOBIN 31.1 pg (25.0-35.0); MEAN CORPUSCULAR HGB CONC 35.3 g/dl (31.0-37.0); MEAN PLATELET VOLUME 10.2 fl (7.0-11.0); MONO # 0.7 (0.1-0.6); MONO % 3.5 % (1.0-6.0); RBC 4.08 10^6/uL (3.5-6.1); RED CELL DISTRIBUTION WIDTH 12.3 % (11.5-14.5); WHITE BLOOD COUNT 19.7 10^3/uL (4.5-11.0)
[2018-12-15 22:15] LABS: ALB/GLOB RATIO 1.6 (1.1-1.8); ALBUMIN 4.7 g/dL (3.0-4.8); ALT/SGPT 33 U/L (7-56); AST/SGOT 26 U/L (14-36); BLOOD UREA NITROGEN 12 mg/dL (7-21); CALCIUM 9.9 mg/dL (8.4-10.5); GFR NON-AFRICAN AMERICAN > 60
[2018-12-15] MEDS ORDERED: Morphine 2 mg/ml ISec IVP STA (22:23)
[2018-12-16] MEDS ORDERED: cefTRIAXone 1 gm 1 GM/100 ML BAG IVPB STA (01:35)
--- NOTE | 2018-12-16 01:41 | CP.PCM.HP ---
History of Present Illness - History of Present Illness History of Present Illness: PGY-[address] H[address]P [address] Clark Caicedotoño Burns is a 28 year old female, with past medical history of hyperemesis gravidum, currently 9 weeks , presenting with nausea and vomiting. Patient was seen yesterday in the emergency department for nausea and vomiting, treated for hyperemesis gravidarum and UTI, and discharged home. Patient states that she came back to the ED today due to persisting nausea and vomiting. Patient also noted some blood in her vomit tonight. She states that she has had multiple visits to [facility] and [facility] for nausea and vomiting. She admits to epigastric discomfort secondary to her vomiting. Patient denies having any pre- didi care. Patient further denies any fever, chills, chest pain, shortness of breath, urinary symptoms, back pain, or diarrhea. 12 system ROS reviewed and negative except mentioned in HPI. PMHx: hyperemesis gravidum PSHx: denies OB Hx: Has been 3 times. 1 living child and 1 . Social Hx: denies tobacco, alcohol, or drug use. Family HX: mother has lupus Allergies: NKDA Meds: denies PMD: none OB-CONVEYOR TECHNICIAN: none Present on Admission - Present on Admission Any Indicators Present on Admission: No History of DVT/PE: No History of Uncontrolled Diabetes: No Urinary Catheter: No Decubitus Ulcer Present: No Review of Systems - Review of Systems All systems: reviewed and no additional remarkable complaints except Past Patient History - Infectious Disease Hx of Infectious Diseases: None - Tetanus Immunizations Tetanus Immunization: Unknown - Past Social History Smoking Status: Never Smoked - CARDIAC Hx Cardiac Disorders: No - PULMONARY Hx Respiratory Disorders: No - NEUROLOGICAL Hx Neurological Disorder: No - HEENT Hx HEENT Problems: No - RENAL Hx Chronic Kidney Disease: No - ENDOCRINE/METABOLIC Hx Endocrine Disorders: No - HEMATOLOGICAL/ONCOLOGICAL Hx Blood Disorders: No - INTEGUMENTARY Hx Dermatological Problems: No - MUSCULOSKELETAL/RHEUMATOLOGICAL Hx Musculoskeletal Disorders: No - GASTROINTESTINAL Hx Gastrointestinal Disorders: No - GENITOURINARY/GYNECOLOGICAL Hx Genitourinary Disorders: No - PSYCHIATRIC Hx Psychophysiologic Disorder: No Hx Substance Use: No - SURGICAL HISTORY Hx Surgeries: No - ANESTHESIA Hx Anesthesia: No Meds Allergies/Adverse Reactions: Allergies Allergy/AdvReac Type Severity Reaction Status Date / Time No Known Allergies Allergy Verified 12/15/18 21:02 Physical Exam - Constitutional Appears: No Acute Distress, Other (Appears uncomfortable) - Head Exam Head Exam: ATRAUMATIC, NORMAL INSPECTION - Eye Exam Eye Exam: EOMI, Normal appearance, PERRL - ENT Exam ENT Exam: Mucous Membranes Dry - Respiratory Exam Respiratory Exam: Clear to Auscultation Bilateral, NORMAL BREATHING PATTERN. absent: Rales, Rhonchi, Wheezes, Respiratory Distress - Cardiovascular Exam Cardiovascular Exam: REGULAR RHYTHM, +S1, +S2. absent: Gallop, Rubs, Systolic Murmur - GI/Abdominal Exam GI & Abdominal Exam: Normal Bowel Sounds, Soft, Tenderness (Tender to palpation in epigastric region). absent: Distended, Firm, Guarding - Extremities Exam Extremities exam: Positive for: normal inspection. Negative for: calf tenderness, pedal edema - Back Exam Back exam: NORMAL INSPECTION. absent: CVA tenderness (L), CVA tenderness (R) - Neurological Exam Neurological exam: Alert, CN II-XII Intact, Oriented x3 - Psychiatric Exam Psychiatric exam: Normal Affect, Normal Mood - Skin Skin Exam: Dry, Intact, Normal Color, Warm Results - Vital Signs Recent Vital Signs: Last Vital Signs Temp 98.7 F 12/15/18 21:03 Pulse 74 12/15/18 21:03 Resp 17 12/15/18 21:03 BP 110/62 12/15/18 21:03 Pulse Ox 99 12/15/18 21:03 - Labs Result Diagrams: 12/15/18 21:53 12/15/18 21:53 Labs: Laboratory Results - last 24 hr 12/15/18 12/15/18 12/15/18 21:53 21:53 23:03 WBC 19.7 H RBC 4.08 Hgb 12.7 Hct 36.0 MCV 88.2 MCH 31.1 MCHC 35.3 RDW 12.3 Plt Count 327 MPV 10.2 Gran % 90.6 H Lymph % (Auto) 5.8 L Dane % (Auto) 3.5 Eos % (Auto) 0.0 L Baso % (Auto) 0.1 Gran # 17.89 H Lymph # (Auto) 1.1 L Dane # (Auto) 0.7 H Eos # (Auto) 0.0 Baso # (Auto) 0.01 Sodium 137 Potassium 3.7 Chloride 103 Carbon Dioxide 18 L Anion Gap 19 BUN 12 Creatinine 0.4 L Est GFR ( Amer) > 60 Est GFR (Non-Af Amer) > 60 Random Glucose 118 H Calcium 9.9 Total Bilirubin 0.9 AST 26 ALT 33 Alkaline Phosphatase 59 Total Protein 7.6 Albumin 4.7 Globulin 2.9 Albumin/Globulin Ratio 1.6 Influenza Typ A,B (EIA) Negative for flu a/b Assessment & Plan - Assessment and Plan (Free Text) Assessment: Rox Burns is a 28 year old female, with past medical history of hyperemesis gravidum, currently 9 weeks , presenting with nausea and vomiting. Plan: Hyperemesis gravidum - Reglan 5mg IV Q6 PRN - Keep patient NPO - IVF: NS @ 100 mls/hr Epigastric pain - Likely 2/2 multiple episodes of vomiting - Abdomen US: Unremarkable exam. - Tylenol 325mg PO Q6 PRN Asymptomatic UTI - Patient is 9 months - UA: Positive for LE, WBC, bacteria - Rocephin given in ED - ID consulted, Dr. Cifuentes - Urine culture: pending , 9 months - Patient denies having any care, does not have OB-CONVEYOR TECHNICIAN doctor - Transvaginal US: Single, live intrauterine gestation. No abnormality is noted. - Will make an appointment for neighborhood clinic and OB-CONVEYOR TECHNICIAN referral Prophylaxis - DVT: SCD's Case discussed with Dr. Clark Dunn, PGY-1
[2018-12-16 02:01] LABS: URINE BILIRUBIN NEGATIVE (NEGATIVE); URINE BLOOD NEGATIVE (NEGATIVE); URINE GLUCOSE (UA) NEGATIVE (NEGATIVE); URINE LEUKOCYTE ESTERASE TRACE Leu/uL (NEGATIVE); URINE PROTEIN 30 mg/dL (<30 mg/dL); URINE UROBILINOGEN 0.2 E.U./dL (<1 E.U./dL)
[2018-12-16 02:12] LABS: URINE APPEARANCE CLEAR (CLEAR); URINE COLOR YELLOW (YELLOW)
[2018-12-16 02:23] LABS: URINE AMORPHOUS SEDIMENT FEW /hpf; URINE BACTERIA SMALL /hpf; URINE RBC 0 - 2 /hpf (0-2)
[2018-12-16] MEDS ORDERED: Sodium Chloride 0.9% 1,000 ML IV SCH (03:15)
[2018-12-16 06:58] LABS: BASO # 0.01 K/mm3 (0.0-2.0); BASO % 0.1 % (0.0-3.0); EOS % 0.1 % (1.5-5.0); GRAN # 14.32 (1.4-6.5); GRAN % 82.7 % (50.0-68.0); HEMOGLOBIN 11.9 g/dL (12.0-16.0); LYMPH # 1.8 (1.2-3.4); LYMPH % 10.5 % (22.0-35.0); MEAN CELL VOLUME 88.9 fl (80.0-105.0); MEAN CORPUSCULAR HEMOGLOBIN 30.7 pg (25.0-35.0); MEAN CORPUSCULAR HGB CONC 34.5 g/dl (31.0-37.0); MEAN PLATELET VOLUME 10.4 fl (7.0-11.0); MONO # 1.1 (0.1-0.6); MONO % 6.6 % (1.0-6.0); RBC 3.88 10^6/uL (3.5-6.1); RED CELL DISTRIBUTION WIDTH 12.5 % (11.5-14.5); WHITE BLOOD COUNT 17.3 10^3/uL (4.5-11.0)
[2018-12-16 07:39] LABS: ALB/GLOB RATIO 1.4 (1.1-1.8); ALBUMIN 4.3 g/dL (3.0-4.8); ALT/SGPT 29 U/L (7-56); AST/SGOT 22 U/L (14-36); BLOOD UREA NITROGEN 10 mg/dL (7-21); GFR NON-AFRICAN AMERICAN > 60
[2018-12-16] MEDS ORDERED: Potassium Chloride 20 mEq ER Tab PO STA (08:39)
[2018-12-16] MEDS ORDERED: Potassium Chloride 20 mEq ER Tab PO ONE ×3 (09:00→12:00)
[2018-12-16] MEDS ORDERED: Magnesium Sulfate 1 gm in D5W 1 GM/100 ML BAG IVPB ONE ×2 (12:31→19:11)
--- NOTE | 2018-12-16 12:32 | US ---
Date of service: 12/15/2018 PROCEDURE: OB Pelvic Ultrasound HISTORY: lower abd pain LMP: 10/13/2018 suggesting 9 week 0 day gestation. COMPARISON: None available. FINDINGS: UTERUS: Gestational sac: Single intrauterine gestation. Heart rate: 173 bpm. age (Ultrasound estimated): 8 weeks 4 days, concordant with LMP derived dates. Janay-gestational hemorrhage: None. Date of delivery (Ultrasound estimated) : 07/24/2019. Uterus measures 9.8 x 6.8 x 7.5 cm. No discrete myometrial mass appreciated. CERVIX: Measures 3.3 cm. Long and closed. No cervical abnormality seen. RIGHT OVARY: Measures 2.2 x 1.0 x 2.0 cm. No mass lesion. Normal flow. LEFT OVARY: Measures 2.9 x 1.6 x 2.4 cm. No solid mass. Normal flow. FREE FLUID: None. OTHER FINDINGS: None. IMPRESSION: A single viable intrauterine gestation is identified in the 1st trimester with average ultrasonic age of 8 weeks 4 days, concordant with LMP derived dates. No definitive hemorrhage related to the gestation at this time. Clinical and potential sonographic follow-up recommended. Concordant preliminary report from Ashok, 12/16/2018 12:54 a.m..
--- NOTE | 2018-12-16 12:36 | US ---
Date of service: 12/15/2018 HISTORY: abd pain COMPARISON: None. TECHNIQUE: Sonographic evaluation of the abdomen. FINDINGS: LIVER: Measures 13.5 cm. Normal echogenicity of the liver parenchyma. No mass. No intrahepatic bile duct dilatation. GALLBLADDER: Unremarkable. No gallstones. COMMON BILE DUCT: Measures 3.6 mm. No stones. No dilatation. PANCREAS: Unremarkable as visualized. No mass. No ductal dilatation. RIGHT KIDNEY: Measures 8.8cm. Normal echogenicity. No calculus, mass, or hydronephrosis. LEFT KIDNEY: Measures 8.7cm. Normal echogenicity. No calculus, mass, or hydronephrosis. SPLEEN: Normal in size and contour, measuring 8.0 cm greatest dimension. No mass. AORTA: No aneurysmal dilatation. IVC: Unremarkable. OTHER FINDINGS: None. IMPRESSION: Unremarkable abdominal sonogram. Concordant preliminary report from Ashok, 12/16/2018, 1:02 a.m..
[2018-12-16 16:06] LABS: BLOOD UREA NITROGEN 7 mg/dL (7-21); CALCIUM 8.5 mg/dL (8.4-10.5); GFR NON-AFRICAN AMERICAN > 60
[2018-12-16] MEDS: cefTRIAXone 1 gm 1 GM/100 ML BAG IVPB SCH (19:05)
--- NOTE | 2018-12-16 21:18 | CP.PCM.CON ---
History of Present Illness - History of Present Illness History of Present Illness: Infectious Disease Consultation: December 16, 2018 28 yo female presenting with nausea and vomiting. PMHx includes hyperemesis gravidum, currently 9 weeks . She noted blood in her vomit on day of ad mission. The patient has had multiple visits to [facility] [place] and [facility] [place] for these issues. PMHx: hyperemesis gravidum 3 pregnancies lifetime including current time. 1 child and 1 PSHx: none given Allergies: NKDA Social Hx: No tobacco, EtOH, or illicit drug use Active Medications Acetaminophen (Tylenol 325mg Tab) 325 mg PO Q6 PRN PRN Reason: Pain, Mild (1-3) Last Admin: 12/16/18 11:41 Dose: 325 mg Folic Acid (Folic Acid) 1 mg PO DAILY [facility] Last Admin: 12/16/18 19:06 Dose: 1 mg Potassium Chloride 40 meq/ (Sodium Chloride) 1,020 mls @ 100 mls/hr IV .[id number] [facility] Last Admin: 12/16/18 12:13 Dose: 100 mls/hr Ceftriaxone Sodium (Rocephin 1 Gram Ivpb) 1 gm in 100 mls @ 100 mls/hr IVPB DAILY [facility]; Protocol Last Admin: 12/16/18 19:05 Dose: 100 mls/hr Metoclopramide HCl (Reglan) 5 mg IVP Q6 PRN PRN Reason: Nausea/Vomiting Last Admin: 12/16/18 19:08 Dose: 5 mg Family Hx: none given ROS: nausea, vomiting, diarrhea. No chest pain, fevers, chills, abdominal pain, melena, hematuria, hematemesis, hematochezia, depression, anxiety. Past Patient History - Infectious Disease Hx of Infectious Diseases: None - Tetanus Immunizations Tetanus Immunization: Unknown - Past Social History Smoking Status: Never Smoked - CARDIAC Hx Cardiac Disorders: No - PULMONARY Hx Respiratory Disorders: No - NEUROLOGICAL Hx Neurological Disorder: No - HEENT Hx HEENT Problems: No - RENAL Hx Chronic Kidney Disease: No - ENDOCRINE/METABOLIC Hx Endocrine Disorders: No - HEMATOLOGICAL/ONCOLOGICAL Hx Blood Disorders: No - INTEGUMENTARY Hx Dermatological Problems: No - MUSCULOSKELETAL/RHEUMATOLOGICAL Hx Musculoskeletal Disorders: No - GASTROINTESTINAL Hx Gastrointestinal Disorders: No - GENITOURINARY/GYNECOLOGICAL Hx Genitourinary Disorders: No - PSYCHIATRIC Hx Psychophysiologic Disorder: No Hx Substance Use: No - SURGICAL HISTORY Hx Surgeries: No - ANESTHESIA Hx Anesthesia: No Meds Allergies/Adverse Reactions: Allergies Allergy/AdvReac Type Severity Reaction Status Date / Time No Known Allergies Allergy Verified 12/15/18 21:02 - Medications Medications: Current Medications Acetaminophen (Tylenol 325mg Tab) 325 mg PO Q6 PRN PRN Reason: Pain, Mild (1-3) Last Admin: 12/16/18 11:41 Dose: 325 mg Folic Acid (Folic Acid) 1 mg PO DAILY [facility] Last Admin: 12/16/18 19:06 Dose: 1 mg Potassium Chloride 40 meq/ (Sodium Chloride) 1,020 mls @ 100 mls/hr IV .[id number] [facility] Last Admin: 12/16/18 12:13 Dose: 100 mls/hr Ceftriaxone Sodium (Rocephin 1 Gram Ivpb) 1 gm in 100 mls @ 100 mls/hr IVPB DAILY [facility]; Protocol Last Admin: 12/16/18 19:05 Dose: 100 mls/hr Metoclopramide HCl (Reglan) 5 mg IVP Q6 PRN PRN Reason: Nausea/Vomiting Last Admin: 12/16/18 19:08 Dose: 5 mg Physical Exam - Constitutional Appears: No Acute Distress - Head Exam Head Exam: ATRAUMATIC, NORMOCEPHALIC - Eye Exam Eye Exam: EOMI, PERRL Pupil Exam: NORMAL ACCOMODATION, PERRL - ENT Exam ENT Exam: Mucous Membranes Dry - Neck Exam Neck exam: Positive for: Full Rom, Normal Inspection - Respiratory Exam Respiratory Exam: Clear to Auscultation Bilateral, NORMAL BREATHING PATTERN. absent: Rales, Rhonchi, Wheezes - Cardiovascular Exam Cardiovascular Exam: REGULAR RHYTHM, RRR, +S1, +S2 - GI/Abdominal Exam GI & Abdominal Exam: Normal Bowel Sounds, Soft. absent: Distended, Tenderness - Extremities Exam Extremities exam: Positive for: full ROM, normal inspection - Neurological Exam Neurological exam: Alert, CN II-XII Intact, Oriented x3 - Psychiatric Exam Psychiatric exam: Normal Affect, Normal Mood - Skin Skin Exam: Dry, Intact, Normal Color Results - Vital Signs Recent Vital Signs: Last Vital Signs Temp 97.8 F 12/16/18 14:00 Pulse 89 12/16/18 14:00 Resp 18 12/16/18 14:00 BP 117/67 12/16/18 14:00 Pulse Ox 100 12/16/18 14:00 - Labs Result Diagrams: 12/16/18 05:30 12/16/18 15:40 Labs: Laboratory Results - last 24 hr 12/15/18 12/15/18 12/15/18 21:53 21:53 23:03 WBC 19.7 H RBC 4.08 Hgb 12.7 Hct 36.0 MCV 88.2 MCH 31.1 MCHC 35.3 RDW 12.3 Plt Count 327 MPV 10.2 Gran % 90.6 H Lymph % (Auto) 5.8 L Edmunds % (Auto) 3.5 Eos % (Auto) 0.0 L Baso % (Auto) 0.1 Gran # 17.89 H Lymph # (Auto) 1.1 L Edmunds # (Auto) 0.7 H Eos # (Auto) 0.0 Baso # (Auto) 0.01 Sodium 137 Potassium 3.7 Chloride 103 Carbon Dioxide 18 L Anion Gap 19 BUN 12 Creatinine 0.4 L Est GFR ( Amer) > 60 Est GFR (Non-Af Amer) > 60 Random Glucose 118 H Calcium 9.9 Phosphorus Magnesium Total Bilirubin 0.9 AST 26 ALT 33 Alkaline Phosphatase 59 Total Protein 7.6 Albumin 4.7 Globulin 2.9 Albumin/Globulin Ratio 1.6 Urine Color Urine Appearance Urine pH Ur Specific Killen Urine Protein Urine Glucose (UA) Urine Ketones Urine Blood Urine Nitrate Urine Bilirubin Urine Urobilinogen Ur Leukocyte Esterase Urine RBC Urine WBC Ur Epithelial Cells Amorphous Sediment Urine Bacteria Influenza Typ A,B (EIA) Negative for flu a/b 12/16/18 12/16/18 12/16/18 01:40 05:30 05:30 WBC 17.3 H RBC 3.88 Hgb 11.9 L Hct 34.5 L MCV 88.9 MCH 30.7 MCHC 34.5 RDW 12.5 Plt Count 313 MPV 10.4 Gran % 82.7 H Lymph % (Auto) 10.5 L Edmunds % (Auto) 6.6 H Eos % (Auto) 0.1 L Baso % (Auto) 0.1 Gran # 14.32 H Lymph # (Auto) 1.8 Edmunds # (Auto) 1.1 H Eos # (Auto) 0.0 Baso # (Auto) 0.01 Sodium 137 Potassium 2.9 L* D Chloride 106 Carbon Dioxide 20 L Anion Gap 14 BUN 10 Creatinine 0.5 L Est GFR ( Amer) > 60 Est GFR (Non-Af Amer) > 60 Random Glucose 96 Calcium 9.0 Phosphorus 3.0 Magnesium 1.6 L Total Bilirubin 0.6 AST 22 ALT 29 Alkaline Phosphatase 64 Total Protein 7.3 Albumin 4.3 Globulin 3.1 Albumin/Globulin Ratio 1.4 Urine Color Yellow Urine Appearance Clear Urine pH 6.0 Ur Specific Killen >= 1.030 Urine Protein 30 H Urine Glucose (UA) Negative Urine Ketones >=80 Urine Blood Negative Urine Nitrate Negative Urine Bilirubin Negative Urine Urobilinogen 0.2 Ur Leukocyte Esterase Trace H Urine RBC 0 - 2 Urine WBC 1 - 3 Ur Epithelial Cells 4 - 5 Amorphous Sediment Few Urine Bacteria Small Influenza Typ A,B (EIA) 12/16/18 15:40 WBC RBC Hgb Hct MCV MCH MCHC RDW Plt Count MPV Gran % Lymph % (Auto) Edmunds % (Auto) Eos % (Auto) Baso % (Auto) Gran # Lymph # (Auto) Edmunds # (Auto) Eos # (Auto) Baso # (Auto) Sodium 135 Potassium 3.8 Chloride 107 Carbon Dioxide 20 L Anion Gap 12 BUN 7 Creatinine 0.4 L Est GFR ( Amer) > 60 Est GFR (Non-Af Amer) > 60 Random Glucose 85 Calcium 8.5 Phosphorus Magnesium Total Bilirubin AST ALT Alkaline Phosphatase Total Protein Albumin Globulin Albumin/Globulin Ratio Urine Color Urine Appearance Urine pH Ur Specific Killen Urine Protein Urine Glucose (UA) Urine Ketones Urine Blood Urine Nitrate Urine Bilirubin Urine Urobilinogen Ur Leukocyte Esterase Urine RBC Urine WBC Ur Epithelial Cells Amorphous Sediment Urine Bacteria Influenza Typ A,B (EIA) Assessment & Plan - Assessment and Plan (Free Text) Assessment: 28 yo female who is currently in her 9th week with known hyperemesis gravidum, epigastric pain, questionable UTI. Started on Rocephin for antibiotic care. Leukocytosis up to 19.7 but afebrile. Supportive care. Urine cultures pending. Most of the patient's symptoms are more likely due to her hyperemesis gravidum. Thank you for allowing me participate in the care of the patient, we will follow with you.
[2018-12-17] MEDS ORDERED: Benzocaine/Menthol (Cepacol) Lozenge MT ONE (04:47)
[2018-12-17 07:59] LABS: BASO # 0.01 K/mm3 (0.0-2.0); BASO % 0.1 % (0.0-3.0); EOS % 0.1 % (1.5-5.0); GRAN # 7.63 (1.4-6.5); GRAN % 85.4 % (50.0-68.0); HEMOGLOBIN 12.2 g/dL (12.0-16.0); LYMPH % 11.3 % (22.0-35.0); MEAN CELL VOLUME 89.5 fl (80.0-105.0); MEAN CORPUSCULAR HEMOGLOBIN 30.4 pg (25.0-35.0); MEAN PLATELET VOLUME 9.7 fl (7.0-11.0); MONO # 0.3 (0.1-0.6); MONO % 3.1 % (1.0-6.0); RBC 4.01 10^6/uL (3.5-6.1); RED CELL DISTRIBUTION WIDTH 12.2 % (11.5-14.5); WHITE BLOOD COUNT 8.9 10^3/uL (4.5-11.0)
[2018-12-17 08:15] LABS: ALB/GLOB RATIO 1.4 (1.1-1.8); ALBUMIN 4.2 g/dL (3.0-4.8); ALT/SGPT 37 U/L (7-56); AST/SGOT 37 U/L (14-36); BLOOD UREA NITROGEN < 2 mg/dL (7-21); CALCIUM 8.8 mg/dL (8.4-10.5); GFR NON-AFRICAN AMERICAN > 60
[2018-12-17] MEDS: guaiFENesin 100 mg/5 ml Syrup UD PO PRN ×2 (09:39→20:53)
[2018-12-17] MEDS: cefTRIAXone 1 gm 1 GM/100 ML BAG IVPB SCH (09:39)
--- NOTE | 2018-12-17 14:24 | CP.PCM.PN ---
<Sindhu Dillon - Last Filed: 12/17/18 14:39> Subjective - Date & Time of Evaluation Date of Evaluation: 12/17/18 Time of Evaluation: 14:24 - Subjective Subjective: Sindhu Dillon, PGY2, Medicine Progress Note for Dr Roque: Patient seen and examined at bedside. No acute events overnight. Patient reports chills, mildly improved nausea, vomiting. She reports new onset of chills, dry cough, body aches, headache. She states that she was next to a "flu patient" in emergency room. Denies chest pain, diarrhea, abdominal pain, shortness of breath, palpitations. Objective - Vital Signs/Intake and Output Vital Signs (last 24 hours): Temp Pulse Resp BP Pulse Ox 102.3 F H 89 18 117/67 100 12/17/18 14:21 12/16/18 14:00 12/16/18 14:00 12/16/18 14:00 12/16/18 14:00 Intake and Output: 12/17/18 12/17/18 06:59 18:59 Intake Total 2580 Balance 2580 - Medications Medications: Current Medications Acetaminophen (Tylenol 325mg Tab) 325 mg PO Q6 PRN PRN Reason: Pain, Mild (1-3) Last Admin: 12/17/18 00:50 Dose: 325 mg Acetaminophen (Tylenol 325mg Tab) 650 mg PO Q6H PRN PRN Reason: Fever >100.4 F Last Admin: 12/17/18 14:21 Dose: 650 mg Folic Acid (Folic Acid) 1 mg PO DAILY [facility] Last Admin: 12/17/18 09:39 Dose: 1 mg Guaifenesin (Robitussin) 100 mg PO Q4H PRN PRN Reason: Cough Last Admin: 12/17/18 09:39 Dose: 100 mg Potassium Chloride 40 meq/ (Sodium Chloride) 1,020 mls @ 100 mls/hr IV .[id number] [facility] Last Admin: 12/17/18 09:39 Dose: 100 mls/hr Ceftriaxone Sodium (Rocephin 1 Gram Ivpb) 1 gm in 100 mls @ 100 mls/hr IVPB DAILY [facility]; Protocol Last Admin: 12/17/18 09:39 Dose: 100 mls/hr Metoclopramide HCl (Reglan) 5 mg IVP Q6 PRN PRN Reason: Nausea/Vomiting Last Admin: 12/17/18 12:43 Dose: 5 mg Oseltamivir Phosphate (Tamiflu Cap) 75 mg PO BID [facility]; Protocol Stop: 12/22/18 14:06 - Labs Labs: 12/17/18 07:45 12/17/18 07:45 - Constitutional Appears: Toxic, No Acute Distress - Head Exam Head Exam: ATRAUMATIC, NORMOCEPHALIC - Eye Exam Eye Exam: EOMI, PERRL. absent: Conjunctival injection, Nystagmus, Scleral icte disha Pupil Exam: NORMAL ACCOMODATION, PERRL. absent: Miosis, Mydriatic, Unequal - ENT Exam ENT Exam: Mucous Membranes Moist - Neck Exam Neck Exam: Full ROM - Respiratory Exam Respiratory Exam: Clear to Ausculation Bilateral, NORMAL BREATHING PATTERN. absent: Accessory Muscle Use, Chest Wall Tenderness, Respiratory Distress, Stridor - Cardiovascular Exam Cardiovascular Exam: RRR, +S1, +S2. absent: Murmur - GI/Abdominal Exam GI & Abdominal Exam: Soft, Normal Bowel Sounds. absent: Guarding, Rigid, Tenderness, Mass - Extremities Exam Extremities Exam: Normal Inspection. absent: Calf Tenderness, Pedal Edema - Back Exam Back Exam: NORMAL INSPECTION - Neurological Exam Neurological Exam: Alert, Awake, Oriented x3 - Psychiatric Exam Psychiatric exam: Normal Affect - Skin Skin Exam: Dry, Normal Color, Warm Assessment and Plan - Assessment and Plan (Free Text) Assessment: This is a 28 year old female, with past medical history of hyperemesis gravidum, currently 9 weeks , presents for nausea, vomiting. Patient also found to have asymptomatic UTI, on rocephin as per ID. Patient found to be have new onset fever, dry cough, influenza positive. Blood cultures drawn, started patient on Tamiflu: Influenza: - Influenza positive, T 102.3 today - no leukocytosis - Tamiflu 75 mg PO bid, tylenol prn fever - Droplet precautions - IV fluid infusing - Dr Cifuentes on board. Will f/u recs. Nausea, vomiting: - Reglan 5mg IV Q6 PRN - Soft diet - IVF: NS @ 100 mls/hr - Patient normotensive - Abdominal US negative UTI in : - patient denies urinary symptoms currently - UA: Positive for LE, WBC, bacteria - ID Dr. Cifuentes on board. recommends rocephin. - Urine culture 12/16 negative for growth - monitor : - Patient denies having any care, does not have OB-[employer] SAFETY MANAGER doctor - Transvaginal US: Single, live intrauterine gestation. No abnormality is noted. - Will make an appointment for [facility] and [facility] SAF[employer]Y MANAGER referral - Folic acid 1 mg daily, multivitamin Prophylaxis - DVT: SCD's Case seen and discussed with attending, Dr Roque. <Boris Roque - Last Filed: 12/17/18 16:21> Objective - Vital Signs/Intake and Output Vital Signs (last 24 hours): Temp Pulse Resp BP Pulse Ox 100.7 F H 89 18 117/67 100 12/17/18 15:47 12/16/18 14:00 12/16/18 14:00 12/16/18 14:00 12/16/18 14:00 Intake and Output: 12/17/18 12/17/18 06:59 18:59 Intake Total 2580 Balance 2580 - Medications Medications: Current Medications Acetaminophen (Tylenol 325mg Tab) 325 mg PO Q6 PRN PRN Reason: Pain, Mild (1-3) Last Admin: 12/17/18 00:50 Dose: 325 mg Acetaminophen (Tylenol 325mg Tab) 650 mg PO Q6H PRN PRN Reason: Fever >100.4 F Last Admin: 12/17/18 14:21 Dose: 650 mg Folic Acid (Folic Acid) 1 mg PO DAILY [facility] Last Admin: 12/17/18 09:39 Dose: 1 mg Guaifenesin (Robitussin) 100 mg PO Q4H PRN PRN Reason: Cough Last Admin: 12/17/18 09:39 Dose: 100 mg Ceftriaxone Sodium (Rocephin 1 Gram Ivpb) 1 gm in 100 mls @ 100 mls/hr IVPB DAILY [facility]; Protocol Last Admin: 12/17/18 09:39 Dose: 100 mls/hr Sodium Chloride (Sodium Chloride 0.9%) 1,000 mls @ 100 mls/hr IV .Q10H [facility] Metoclopramide HCl (Reglan) 5 mg IVP Q6 PRN PRN Reason: Nausea/Vomiting Last Admin: 12/17/18 12:43 Dose: 5 mg Multivitamins (Thera Tab) 1 tab PO 0800 [facility] Oseltamivir Phosphate (Tamiflu Cap) 75 mg PO BID [facility]; Protocol Stop: 12/22/18 14:06 - Labs Labs: 12/17/18 07:45 12/17/18 07:45 Attending/Attestation - Attestation I have personally seen and examined this patient.: Yes I have fully participated in the care of the patient.: Yes I have reviewed all pertinent clinical information, including history, physical exam and plan: Yes Notes (Text): 12/17/18 16:17 28 year old female, , currently 9 weeks , presented with complaint of nausea/vomiting secondary to hyperemesis gravidum. Continue with supportive care with iv fluids, reglan prn and diet as tolerated; advanced today to soft diet. She is also on iv antibiotics for UTI. Today she was noted to have fever of 102 and tested positive for flu. She is started on tamiflu. Leukocytosis has improved. BCx is ordered. ID is following. Case discussed with Dr. Cifuentes. Boris Roque MD Hospitalist.
[2018-12-17] MEDS: Sodium Chloride 0.9% 1,000 ML IV SCH (17:18)
--- NOTE | 2018-12-17 18:09 | CP.PCM.PN ---
Subjective - Date & Time of Evaluation Date of Evaluation: 12/17/18 Time of Evaluation: 17:00 - Subjective Subjective: Infectious Disease Follow Up: December 17, 2018 28 yo female presenting with nausea and vomiting. PMHx includes hyperemesis gravidum, currently 9 weeks . She noted blood in her vomit on day of admission. The patient has had multiple visits to [facility] [place] and [facility] [place] for these issues. Tested for Influenza and found to be positive. Started on Tamiflu. Objective - Vital Signs/Intake and Output Vital Signs (last 24 hours): Temp Pulse Resp BP Pulse Ox 100.7 F H 89 18 117/67 100 12/17/18 15:47 12/16/18 14:00 12/16/18 14:00 12/16/18 14:00 12/16/18 14:00 Intake and Output: 12/17/18 12/17/18 06:59 18:59 Intake Total 2580 Balance 2580 - Medications Medications: Current Medications Acetaminophen (Tylenol 325mg Tab) 325 mg PO Q6 PRN PRN Reason: Pain, Mild (1-3) Last Admin: 12/17/18 00:50 Dose: 325 mg Acetaminophen (Tylenol 325mg Tab) 650 mg PO Q6H PRN PRN Reason: Fever >100.4 F Last Admin: 12/17/18 14:21 Dose: 650 mg Folic Acid (Folic Acid) 1 mg PO DAILY [facility] Last Admin: 12/17/18 09:39 Dose: 1 mg Guaifenesin (Robitussin) 100 mg PO Q4H PRN PRN Reason: Cough Last Admin: 12/17/18 09:39 Dose: 100 mg Ceftriaxone Sodium (Rocephin 1 Gram Ivpb) 1 gm in 100 mls @ 100 mls/hr IVPB DAILY [facility]; Protocol Last Admin: 12/17/18 09:39 Dose: 100 mls/hr Sodium Chloride (Sodium Chloride 0.9%) 1,000 mls @ 100 mls/hr IV .Q10H [facility] Last Admin: 12/17/18 17:18 Dose: 100 mls/hr Metoclopramide HCl (Reglan) 5 mg IVP Q6 PRN PRN Reason: Nausea/Vomiting Last Admin: 12/17/18 12:43 Dose: 5 mg Multivitamins (Thera Tab) 1 tab PO 0800 [facility] Oseltamivir Phosphate (Tamiflu Cap) 75 mg PO BID [facility]; Protocol Stop: 12/22/18 14:06 Last Admin: 12/17/18 17:16 Dose: 75 mg - Labs Labs: 12/17/18 07:45 12/17/18 07:45 - Constitutional Appears: Non-toxic, No Acute Distress - Head Exam Head Exam: ATRAUMATIC, NORMOCEPHALIC - Eye Exam Eye Exam: EOMI, PERRL Pupil Exam: NORMAL ACCOMODATION, PERRL - ENT Exam ENT Exam: Mucous Membranes Moist, Normal External Ear Exam, TM's Normal Bilaterally - Neck Exam Neck Exam: Full ROM, Normal Inspection - Respiratory Exam Respiratory Exam: Clear to Ausculation Bilateral, NORMAL BREATHING PATTERN. absent: Rales, Rhonchi, Wheezes - Cardiovascular Exam Cardiovascular Exam: REGULAR RHYTHM, RRR, +S1, +S2 - GI/Abdominal Exam GI & Abdominal Exam: Soft, Normal Bowel Sounds. absent: Distended, Tenderness - Extremities Exam Extremities Exam: Full ROM, Normal Inspection - Neurological Exam Neurological Exam: Alert, Awake, CN II-XII Intact, Oriented x3 - Psychiatric Exam Psychiatric exam: Normal Affect, Normal Mood - Skin Skin Exam: Intact, Normal Color Assessment and Plan - Assessment and Plan (Free Text) Assessment: 28 yo female who is currently in her 9th week with known hyperemesis gravidum, epigastric pain, questionable UTI. Started on Rocephin for antibiotic care. Leukocytosis up to 19.7 but afebrile. WBC did improve slightly to 17.3. Supportive care. Urine cultures negative. Most of the patient's symptoms are more likely due to her hyperemesis gravidum. The patient was found to have positive Influenza. Started on Tamiflu. Thank you for allowing me participate in the care of the patient, we will follow with you.
[2018-12-18] MEDS: Sodium Chloride 0.9% 1,000 ML IV SCH ×2 (08:10→14:49)
[2018-12-18] MEDS: Multivitamin Therapeutic Tab PO SCH (08:31)
[2018-12-18] MEDS: cefTRIAXone 1 gm 1 GM/100 ML BAG IVPB SCH (10:12)
--- NOTE | 2018-12-18 13:00 | CP.PCM.PN ---
<Sindhu Dillon - Last Filed: 12/18/18 12:57> Subjective - Date & Time of Evaluation Date of Evaluation: 12/18/18 Time of Evaluation: 12:57 - Subjective Subjective: Sindhu Dillon, PGY2, Medicine Progress Note for Dr Roque: Patient seen and examined at bedside. Overnight, patient had a tmax 102.3 at 11 PM. This AM, patient reports that she feels better but still has a temp 100.3F. Reports myalgias, chills. However, denies nausea, vomiting, headache, diarrhea, abdominal pain, sob, palpitations. Objective - Vital Signs/Intake and Output Vital Signs (last 24 hours): Temp Pulse Resp BP Pulse Ox 100.3 F H 99 H 18 117/68 100 12/18/18 06:41 12/18/18 06:00 12/18/18 06:00 12/18/18 06:00 12/18/18 06:00 Intake and Output: 12/18/18 12/18/18 06:59 18:59 Intake Total 180 Balance 180 - Medications Medications: Current Medications Acetaminophen (Tylenol 325mg Tab) 325 mg PO Q6 PRN PRN Reason: Pain, Mild (1-3) Last Admin: 12/17/18 00:50 Dose: 325 mg Acetaminophen (Tylenol 325mg Tab) 650 mg PO Q6H PRN PRN Reason: Fever >100.4 F Last Admin: 12/18/18 06:41 Dose: 650 mg Folic Acid (Folic Acid) 1 mg PO DAILY [facility] Last Admin: 12/18/18 10:12 Dose: 1 mg Guaifenesin (Robitussin) 100 mg PO Q4H PRN PRN Reason: Cough Last Admin: 12/17/18 20:53 Dose: 100 mg Ceftriaxone Sodium (Rocephin 1 Gram Ivpb) 1 gm in 100 mls @ 100 mls/hr IVPB DAILY [facility]; Protocol Last Admin: 12/18/18 10:12 Dose: 100 mls/hr Sodium Chloride (Sodium Chloride 0.9%) 1,000 mls @ 100 mls/hr IV .Q10H [facility] Last Admin: 12/18/18 08:10 Dose: 100 mls/hr Metoclopramide HCl (Reglan) 5 mg IVP Q6 PRN PRN Reason: Nausea/Vomiting Last Admin: 12/18/18 04:03 Dose: 5 mg Multivitamins (Thera Tab) 1 tab PO 0800 [facility] Last Admin: 12/18/18 08:31 Dose: 1 tab Oseltamivir Phosphate (Tamiflu Cap) 75 mg PO BID COUNTS [facility]CLUDE [facility] BEDS AT THE [facility]; Protocol Stop: 12/22/18 14:06 Last Admin: 12/18/18 10:12 Dose: 75 mg - Labs Labs: 12/17/18 07:45 12/17/18 07:45 - Additional Findings Additional findings: - Constitutional Appears: Toxic, No Acute Distress - Head Exam Head Exam: ATRAUMATIC, NORMOCEPHALIC - Eye Exam Eye Exam: EOMI, PERRL. absent: Conjunctival injection, Nystagmus, Scleral icterus Pupil Exam: NORMAL ACCOMODATION, PERRL. absent: Miosis, Mydriatic, Unequal - ENT Exam ENT Exam: Mucous Membranes Moist - Neck Exam Neck Exam: Full ROM - Respiratory Exam Respiratory Exam: Clear to Ausculation Bilateral, NORMAL BREATHING PATTERN. absent: Accessory Muscle Use, Chest Wall Tenderness, Respiratory Distress, Stridor - Cardiovascular Exam Cardiovascular Exam: RRR, +S1, +S2. absent: Murmur - GI/Abdominal Exam GI & Abdominal Exam: Soft, Normal Bowel Sounds. absent: Guarding, Rigid, Tenderness, Mass - Extremities Exam Extremities Exam: Normal Inspection. absent: Calf Tenderness, Pedal Edema - Back Exam Back Exam: NORMAL INSPECTION - Neurological Exam Neurological Exam: Alert, Awake, Oriented x3 - Psychiatric Exam Psychiatric exam: Normal Affect - Skin Skin Exam: Dry, Normal Color, Warm Assessment and Plan - Assessment and Plan (Free Text) Assessment: This is a 28 year old female, with past medical history of hyperemesis gravidum, currently 9 weeks , presents for nausea, vomiting. Patient also found to have asymptomatic UTI, on rocephin as per ID. Patient found to have new onset fever, dry cough, influenza positive though the hospital course. Blood cultures drawn, on Tamiflu. Patient spiked a fever overnight 102.3F, tolerating PO diet, will monitor fever curve: Influenza: - Influenza positive, T 102.3 overnight at 11 PM - no leukocytosis - Tamiflu 75 mg PO bid, tylenol prn fever - Droplet precautions - IV fluids infusing - Go on board. appreciate recs. Nausea, vomiting: - Reglan 5mg IV Q6 PRN - Soft diet - IVF: NS @ 100 mls/hr - Patient normotensive - Abdominal US negative UTI in : - patient denies urinary symptoms currently - UA: Positive for LE, WBC, bacteria - ID Dr. Cifuentes on board. recommends rocephin. - Urine culture 12/16 negative for growth - monitor : - Patient denies having any care, does not have [employer]CIAL REPORT SERVICE doctor - Transvaginal US: Single, live intrauterine gestation. No abnormality is noted. - Will make an appointment for [facility] and [employer]CIAL REPORT SERVICE referral - Folic acid 1 mg daily, multivitamin Prophylaxis - DVT: SCD's - GI: pepcid Case seen and discussed with attending, Dr Roque. <Boris Roque - Last Filed: 12/18/18 13:29> Objective - Vital Signs/Intake and Output Vital Signs (last 24 hours): Temp Pulse Resp BP Pulse Ox 100.3 F H 99 H 18 117/68 100 12/18/18 06:41 12/18/18 06:00 12/18/18 06:00 12/18/18 06:00 12/18/18 06:00 Intake and Output: 12/18/18 12/18/18 06:59 18:59 Intake Total 180 Balance 180 - Medications Medications: Current Medications Acetaminophen (Tylenol 325mg Tab) 325 mg PO Q6 PRN PRN Reason: Pain, Mild (1-3) Last Admin: 12/17/18 00:50 Dose: 325 mg Acetaminophen (Tylenol 325mg Tab) 650 mg PO Q6H PRN PRN Reason: Fever >100.4 F Last Admin: 12/18/18 06:41 Dose: 650 mg Famotidine (Pepcid) 20 mg PO 1000,2200 [facility] Folic Acid (Folic Acid) 1 mg PO DAILY [facility] Last Admin: 12/18/18 10:12 Dose: 1 mg Guaifenesin (Robitussin) 100 mg PO Q4H PRN PRN Reason: Cough Last Admin: 12/17/18 20:53 Dose: 100 mg Ceftriaxone Sodium (Rocephin 1 Gram Ivpb) 1 gm in 100 mls @ 100 mls/hr IVPB DAILY [facility]; Protocol Last Admin: 12/18/18 10:12 Dose: 100 mls/hr Sodium Chloride (Sodium Chloride 0.9%) 1,000 mls @ 100 mls/hr IV .Q10H [facility] Last Admin: 12/18/18 08:10 Dose: 100 mls/hr Metoclopramide HCl (Reglan) 5 mg IVP Q6 PRN PRN Reason: Nausea/Vomiting Last Admin: 12/18/18 04:03 Dose: 5 mg Multivitamins (Thera Tab) 1 tab PO 0800 [facility] Last Admin: 12/18/18 08:31 Dose: 1 tab Oseltamivir Phosphate (Tamiflu Cap) 75 mg PO BID [facility]; Protocol Stop: 12/22/18 14:06 Last Admin: 12/18/18 10:12 Dose: 75 mg - Labs Labs: 12/17/18 07:45 12/17/18 07:45 Attending/Attestation - Attestation I have personally seen and examined this patient.: Yes I have fully participated in the care of the patient.: Yes I have reviewed all pertinent clinical information, including history, physical exam and plan: Yes Notes (Text): 12/18/18 13:26 28 year old female, , currently 9 weeks , presented with complaint of nausea/vomiting secondary to hyperemesis gravidum which has improved with reglan and fluids. She is currently tolerating diet. She was found to have fever and flu yesterday and started on tamiflu. She is on rocephin for UTI. ID is following. Tmax is 102.3 from last night and 100.3 t his morning. Leukocytosis has improved. BCx is pending. ID is following. Boris Roque MD Hospitalist.
[2018-12-18] MEDS: guaiFENesin 100 mg/5 ml Syrup UD PO PRN (14:49)
--- NOTE | 2018-12-18 15:08 | CP.PCM.PN ---
Subjective - Date & Time of Evaluation Date of Evaluation: 12/18/18 Time of Evaluation: 14:00 - Subjective Subjective: Infectious Disease Follow Up: December 18, 2018 28 yo female presenting with nausea and vomiting. PMHx includes hyperemesis gravidum, currently 9 weeks . She noted blood in her vomit on day of admission. The patient [place] [facility] [place] [facility] [place] [place] for these issues. Tested for Influenza and found to be positive. Started on Tamiflu 12/17/2018. Overall the patient does NOT feel nauseous today. She still reports body aches, fatigue, fevers, and chills. The patient had fevers up to 102.3 F last night. Objective - Vital Signs/Intake and Output Vital Signs (last 24 hours): Temp Pulse Resp BP Pulse Ox 100.3 F H 99 H 18 117/68 100 12/18/18 06:41 12/18/18 06:00 12/18/18 06:00 12/18/18 06:00 12/18/18 06:00 Intake and Output: 12/18/18 12/18/18 06:59 18:59 Intake Total 180 Balance 180 - Medications Medications: Current Medications Acetaminophen (Tylenol 325mg Tab) 325 mg PO Q6 PRN PRN Reason: Pain, Mild (1-3) Last Admin: 12/17/18 00:50 Dose: 325 mg Acetaminophen (Tylenol 325mg Tab) 650 mg PO Q6H PRN PRN Reason: Fever >100.4 F Last Admin: 12/18/18 06:41 Dose: 650 mg Famotidine (Pepcid) 20 mg PO 1000,2200 [facility] Folic Acid (Folic Acid) 1 mg PO DAILY [facility] Last Admin: 12/18/18 10:12 Dose: 1 mg Guaifenesin (Robitussin) 100 mg PO Q4H PRN PRN Reason: Cough Last Admin: 12/18/18 14:49 Dose: 100 mg Ceftriaxone Sodium (Rocephin 1 Gram Ivpb) 1 gm in 100 mls @ 100 mls/hr IVPB DAILY [facility]; Protocol Last Admin: 12/18/18 10:12 Dose: 100 mls/hr Sodium Chloride (Sodium Chloride 0.9%) 1,000 mls @ 100 mls/hr IV .Q10H [facility] Last Admin: 12/18/18 14:49 Dose: 100 mls/hr Metoclopramide HCl (Reglan) 5 mg IVP Q6 PRN PRN Reason: Nausea/Vomiting Last Admin: 12/18/18 14:49 Dose: 5 mg Multivitamins (Thera Tab) 1 tab PO 0800 [place] Last Admin: 12/18/18 08:31 Dose: 1 tab Oseltamivir Phosphate (Tamiflu Cap) 75 mg PO BID [facility]; Protocol Stop: 12/22/18 14:06 Last Admin: 12/18/18 10:12 Dose: 75 mg - Labs Labs: 12/17/18 07:45 12/17/18 07:45 - Constitutional Appears: Non-toxic, No Acute Distress, Chronically Ill - Head Exam Head Exam: ATRAUMATIC, NORMOCEPHALIC - Eye Exam Eye Exam: EOMI, PERRL Pupil Exam: NORMAL ACCOMODATION, PERRL - ENT Exam ENT Exam: Mucous Membranes Moist, Normal External Ear Exam, TM's Normal Bilaterally - Neck Exam Neck Exam: Full ROM, Normal Inspection - Respiratory Exam Respiratory Exam: Clear to Ausculation Bilateral, NORMAL BREATHING PATTERN. absent: Rales, Rhonchi, Wheezes - Cardiovascular Exam Cardiovascular Exam: REGULAR RHYTHM, RRR, +S1, +S2 - GI/Abdominal Exam GI & Abdominal Exam: Soft, Normal Bowel Sounds. absent: Distended, Tenderness - Extremities Exam Extremities Exam: Full ROM, Normal Inspection - Neurological Exam Neurological Exam: Alert, Awake, CN II-XII Intact, Oriented x3 - Psychiatric Exam Psychiatric exam: Normal Affect, Normal Mood - Skin Skin Exam: Intact, Normal Color Assessment and Plan - Assessment and Plan (Free Text) Assessment: 28 yo female who is currently in her 9th week with known hyperemesis gravidum, epigastric pain, questionable UTI. Started on Rocephin for antibiotic care. Leukocytosis up to 19.7 but afebrile. WBC did improved to 8.9. Supportive care. Urine cultures negative. Most of the patient's symptoms are more likely due to her hyperemesis gravidum. The patient was found to have positive Influenza. Started on Tamiflu 12/17/2018. Feeling better compared to yesterday. Thank you for allowing me participate in the care of the patient, we will follow with you.
[2018-12-18 21:26] VITALS: O2SAT 98
[2018-12-19] MEDS: Sodium Chloride 0.9% 1,000 ML IV SCH (04:41)
[2018-12-19 08:05] VITALS: BP 103/68; PULSE 88; RESP 15; TEMP 98.2
[2018-12-19] MEDS: Multivitamin Therapeutic Tab PO SCH (08:11)
[2018-12-19] MEDS: cefTRIAXone 1 gm 1 GM/100 ML BAG IVPB SCH ×2 (10:13→11:12)
--- NOTE | 2018-12-19 15:56 | CP.PCM.DIS ---
<Blake Henry - Last Filed: 12/19/18 15:44> Provider - Provider Date of Admission: 12/17/18 14:01 Attending physician: Alexandria Looney DO Consults: 12/16/18 03:10 Infectious Disease Consult Routine Comment: Consulting Provider: Juan Cifuentes Consulting Physician: Juan Cifuentes Reason for Consult: UTI, 9 weeks Time Spent in preparation of Discharge (in minutes): 35 Hospital Course - Lab Results Lab Results: Micro Results 12/17/18 15:00 Blood Blood Culture - Preliminary NO GROWTH AFTER 48 HOURS 12/17/18 14:30 Blood Blood Culture - Preliminary NO GROWTH AFTER 48 HOURS 12/16/18 01:40 Urine,Clean Catch Urine Culture - Final No Growth (<1,000 CFU/ML) Most Recent Lab Values WBC 8.9 10^3/uL (4.5-11.0) D 12/17/18 07:45 RBC 4.01 10^6/uL (3.5-6.1) 12/17/18 07:45 Hgb 12.2 g/dL (12.0-16.0) 12/17/18 07:45 Hct 35.9 % (36.0-48.0) L 12/17/18 07:45 MCV 89.5 fl (80.0-105.0) 12/17/18 07:45 MCH 30.4 pg (25.0-35.0) 12/17/18 07:45 MCHC 34.0 g/dl (31.0-37.0) 12/17/18 07:45 RDW 12.2 % (11.5-14.5) 12/17/18 07:45 Plt Count 274 10^3/uL (120.0-450.0) 12/17/18 07:45 MPV 9.7 fl (7.0-11.0) 12/17/18 07:45 Gran % 85.4 % (50.0-68.0) H 12/17/18 07:45 Lymph % (Auto) 11.3 % (22.0-35.0) L 12/17/18 07:45 [place] % (Auto) 3.1 % (1.0-6.0) 12/17/18 07:45 Eos % (Auto) 0.1 % (1.5-5.0) L 12/17/18 07:45 Baso % (Auto) 0.1 % (0.0-3.0) 12/17/18 07:45 Gran # 7.63 (1.4-6.5) H 12/17/18 07:45 Lymph # (Auto) 1.0 (1.2-3.4) L 12/17/18 07:45 [place] # (Auto) 0.3 (0.1-0.6) 12/17/18 07:45 Eos # (Auto) 0.0 (0.0-0.7) 12/17/18 07:45 Baso # (Auto) 0.01 K/mm3 (0.0-2.0) 12/17/18 07:45 Sodium 132 mmol/L (132-148) 12/17/18 07:45 Potassium 4.1 mmol/L (3.6-5.0) 12/17/18 07:45 Chloride 102 mmol/L (98-107) 12/17/18 07:45 Carbon Dioxide 19 mmol/L (21-33) L 12/17/18 07:45 Anion Gap 15 (10-20) 12/17/18 07:45 BUN < 2 mg/dL (7-21) L 12/17/18 07:45 Creatinine 0.5 mg/dl (0.7-1.2) L 12/17/18 07:45 Est GFR ( Amer) > 60 12/17/18 07:45 Est GFR (Non-Af Amer) > 60 12/17/18 07:45 Random Glucose 85 mg/dL (70-110) 12/17/18 07:45 Calcium 8.8 mg/dL (8.4-10.5) 12/17/18 07:45 Phosphorus 3.0 mg/dL (2.5-4.5) 12/16/18 05:30 Magnesium 1.6 mg/dL (1.7-2.2) L 12/16/18 05:30 Total Bilirubin 0.5 mg/dL (0.2-1.3) 12/17/18 07:45 AST 37 U/L (14-36) H D 12/17/18 07:45 ALT 37 U/L (7-56) 12/17/18 07:45 Alkaline Phosphatase 58 U/L (38-126) 12/17/18 07:45 Total Protein 7.2 g/dL (5.8-8.3) 12/17/18 07:45 Albumin 4.2 g/dL (3.0-4.8) 12/17/18 07:45 Globulin 3.0 gm/dL 12/17/18 07:45 Albumin/Globulin Ratio 1.4 (1.1-1.8) 12/17/18 07:45 Urine Color Yellow (YELLOW) 12/16/18 01:40 Urine Appearance Clear (CLEAR) 12/16/18 01:40 Urine pH 6.0 (4.7-8.0) 12/16/18 01:40 Ur Specific [place] >= 1.030 (1.005-1.035) 12/16/18 01:40 Urine Protein 30 mg/dL (<30 mg/dL) H 12/16/18 01:40 Urine Glucose (UA) Negative mg/dL (NEGATIVE) 12/16/18 01:40 Urine Ketones >=80 mg/dL (NEGATIVE) 12/16/18 01:40 Urine Blood Negative (NEGATIVE) 12/16/18 01:40 Urine Nitrate Negative (NEGATIVE) 12/16/18 01:40 Urine Bilirubin Negative (NEGATIVE) 12/16/18 01:40 Urine Urobilinogen 0.2 E.U./dL (<1 E.U./dL) 12/16/18 01:40 Ur Leukocyte Esterase Trace Pankaj/uL (NEGATIVE) H 12/16/18 01:40 Urine RBC 0 - 2 /hpf (0-2) 12/16/18 01:40 Urine WBC 1 - 3 /hpf (0-6) 12/16/18 01:40 Ur Epithelial Cells 4 - 5 /hpf (0-5) 12/16/18 01:40 Amorphous Sediment Few /hpf (NONE) 12/16/18 01:40 Urine Bacteria Small /hpf (NONE) 12/16/18 01:40 Influenza Typ A,B (EIA) Pos for influenza a (NEGATIVE) H 12/17/18 12:25 - Hospital Course Hospital Course: Blake Henry, PGY1 Discharge Summary for Dr. Roque Patient is a 28 year old female, with past medical history of hyperemesis gravidum, who is currently 9 weeks and presented with nausea and vomiting. Patient previously went to ED and was found to have a UTI. She stated that she has ongoing nausea and vomiting and returned to the ED for that reason. She has frequent visits to the hospital for nausea and vomiting. She has not received any care as of yet. Patient was found to be flu positive. Medical team was consulted for evaluation. Folic acid supplementation and multivitamin was given to patient during her admission. Her vomiting improved during hospital course. She was started on tamiflu since she was positive for influenza. For her UTI, she was also given rocephin. Reglan was given for her nausea and vomiting. Diet was advanced as tolerated. She spiked a fever overnight when she initially came in but has now been afebrile with no leukocytosis. Transvaginal ultrassound showed a single, live intrauterine gestation with no abnormalities. After reviewing all labs, vitals, and imaging, patient is hemodynamically stable and safe for discharge. She will complete her tamiflu as outpatient. Her rocephin for UTI was completed during her hospital course. Given vitamins and folic acid supplementation as outpatient. She was encouraged to follow up at the [facility] at [place] as outpatient. Patient verbalized understand. Discharge Exam - Head Exam Head Exam: ATRAUMATIC, NORMOCEPHALIC - Eye Exam Eye Exam: Normal appearance Pupil Exam: NORMAL ACCOMODATION - ENT Exam ENT Exam: Mucous Membranes Moist - Respiratory Exam Respiratory Exam: Clear to PA & Lateral, NORMAL BREATHING PATTERN. absent: Rales, Rhonchi, Wheezes - Cardiovascular Exam Cardiovascular Exam: RRR, +S1, +S2 - GI/Abdominal Exam GI & Abdominal Exam: Normal Bowel Sounds, Soft. absent: Firm, Rigid Additional comments: Patient is - Extremities Exam Extremities exam: full ROM, normal capillary refill, normal inspection, pedal pulses present - Neurological Exam Neurological exam: Alert, CN II-XII Intact, Normal Gait, Oriented x3, Reflexes Normal - Psychiatric Exam Psychiatric exam: Normal Affect, Normal Mood - Skin Skin Exam: Dry, Intact, Normal Color, Warm Discharge Plan - Discharge Medications Prescriptions: Oseltamivir Cap [Tamiflu Cap] 75 mg PO BID 3 Days #6 capsule - Follow Up Plan Condition: GOOD Disposition: HOME/ ROUTINE Instructions: Hyperemesis Gravidarum, How to Adapt to Physical Changes During , and the Flu Additional Instructions: 1. You are being given Tamiflu. Please take one one capsule twice a day for the next 3 days. Please take folic acid 1 mg tablet daily. Please take your vitamins 1 tablet daily. 2. Please follow up with the [facility] at [place] as outpatient. 3. Please return to the ED if your symptoms worsen. Referrals: [facility] [place] [Outside] [facility] [Outside] <Boris Roque - Last Filed: 12/19/18 16:13> Provider - Provider Date of Admission: 12/17/18 14:01 Attending physician: Alexandria Looney DO Consults: 12/16/18 03:10 Infectious Disease Consult Routine Comment: Consulting Provider: Juan Cifuentes Consulting Physician: Juan Cifuentes Reason for Consult: UTI, 9 weeks Hospital Course - Lab Results Lab Results: Micro Results 12/17/18 15:00 Blood Blood Culture - Preliminary NO GROWTH AFTER 48 HOURS 12/17/18 14:30 Blood Blood Culture - Preliminary NO GROWTH AFTER 48 HOURS 12/16/18 01:40 Urine,Clean Catch Urine Culture - Final No Growth (<1,000 CFU/ML) Most Recent Lab Values WBC 8.9 10^3/uL (4.5-11.0) D 12/17/18 07:45 RBC 4.01 10^6/uL (3.5-6.1) 12/17/18 07:45 Hgb 12.2 g/dL (12.0-16.0) 12/17/18 07:45 Hct 35.9 % (36.0-48.0) L 12/17/18 07:45 MCV 89.5 fl (80.0-105.0) 12/17/18 07:45 MCH 30.4 pg (25.0-35.0) 12/17/18 07:45 MCHC 34.0 g/dl (31.0-37.0) 12/17/18 07:45 RDW 12.2 % (11.5-14.5) 12/17/18 07:45 Plt Count 274 10^3/uL (120.0-450.0) 12/17/18 07:45 MPV 9.7 fl (7.0-11.0) 12/17/18 07:45 Gran % 85.4 % (50.0-68.0) H 12/17/18 07:45 Lymph % (Auto) 11.3 % (22.0-35.0) L 12/17/18 07:45 [place] % (Auto) 3.1 % (1.0-6.0) 12/17/18 07:45 Eos % (Auto) 0.1 % (1.5-5.0) L 12/17/18 07:45 Baso % (Auto) 0.1 % (0.0-3.0) 12/17/18 07:45 Gran # 7.63 (1.4-6.5) H 12/17/18 07:45 Lymph # (Auto) 1.0 (1.2-3.4) L 12/17/18 07:45 [place] # (Auto) 0.3 (0.1-0.6) 12/17/18 07:45 Eos # (Auto) 0.0 (0.0-0.7) 12/17/18 07:45 Baso # (Auto) 0.01 K/mm3 (0.0-2.0) 12/17/18 07:45 Sodium 132 mmol/L (132-148) 12/17/18 07:45 Potassium 4.1 mmol/L (3.6-5.0) 12/17/18 07:45 Chloride 102 mmol/L (98-107) 12/17/18 07:45 Carbon Dioxide 19 mmol/L (21-33) L 12/17/18 07:45 Anion Gap 15 (10-20) 12/17/18 07:45 BUN < 2 mg/dL (7-21) L 12/17/18 07:45 Creatinine 0.5 mg/dl (0.7-1.2) L 12/17/18 07:45 Est GFR ( Amer) > 60 12/17/18 07:45 Est GFR (Non-Af Amer) > 60 12/17/18 07:45 Random Glucose 85 mg/dL (70-110) 12/17/18 07:45 Calcium 8.8 mg/dL (8.4-10.5) 12/17/18 07:45 Phosphorus 3.0 mg/dL (2.5-4.5) 12/16/18 05:30 Magnesium 1.6 mg/dL (1.7-2.2) L 12/16/18 05:30 Total Bilirubin 0.5 mg/dL (0.2-1.3) 12/17/18 07:45 AST 37 U/L (14-36) H D 12/17/18 07:45 ALT 37 U/L (7-56) 12/17/18 07:45 Alkaline Phosphatase 58 U/L (38-126) 12/17/18 07:45 Total Protein 7.2 g/dL (5.8-8.3) 12/17/18 07:45 Albumin 4.2 g/dL (3.0-4.8) 12/17/18 07:45 Globulin 3.0 gm/dL 12/17/18 07:45 Albumin/Globulin Ratio 1.4 (1.1-1.8) 12/17/18 07:45 Urine Color Yellow (YELLOW) 12/16/18 01:40 Urine Appearance Clear (CLEAR) 12/16/18 01:40 Urine pH 6.0 (4.7-8.0) 12/16/18 01:40 Ur Specific [place] >= 1.030 (1.005-1.035) 12/16/18 01:40 Urine Protein 30 mg/dL (<30 mg/dL) H 12/16/18 01:40 Urine Glucose (UA) Negative mg/dL (NEGATIVE) 12/16/18 01:40 Urine Ketones >=80 mg/dL (NEGATIVE) 12/16/18 01:40 Urine Blood Negative (NEGATIVE) 12/16/18 01:40 Urine Nitrate Negative (NEGATIVE) 12/16/18 01:40 Urine Bilirubin Negative (NEGATIVE) 12/16/18 01:40 Urine Urobilinogen 0.2 E.U./dL (<1 E.U./dL) 12/16/18 01:40 Ur Leukocyte Esterase Trace Pankaj/uL (NEGATIVE) H 12/16/18 01:40 Urine RBC 0 - 2 /hpf (0-2) 12/16/18 01:40 Urine WBC 1 - 3 /hpf (0-6) 12/16/18 01:40 Ur Epithelial Cells 4 - 5 /hpf (0-5) 12/16/18 01:40 Amorphous Sediment Few /hpf (NONE) 12/16/18 01:40 Urine Bacteria Small /hpf (NONE) 12/16/18 01:40 Influenza Typ A,B (EIA) Pos for influenza a (NEGATIVE) H 12/17/18 12:25 Attending/Attestation - Attestation I have personally seen and examined this patient.: Yes I have fully participated in the care of the patient.: Yes I have reviewed all pertinent clinical information, including history, physical exam and plan: Yes Notes (Text): 12/19/18 16:11 28 year old female, , currently 9 weeks , presented with complaint of nausea/vomiting secondary to hyperemesis gravidum which improved with reglan and fluids. She is now tolerating diet. She was also found to have fever and flu and started on tamiflu. She was on rocephin for UTI. She has been afebrile >24 hrs. Leukocytosis has improved. BCx was negative to date. Overall her symptoms improved. She is discharged home to follow up with pmd. Follow up with gynecology. Continue with tamiflu to complete course. Boris Roque MD Hospitalist.
--- NOTE | 2018-12-19 16:36 | CP.PCM.PN ---
Subjective - Date & Time of Evaluation Date of Evaluation: 12/19/18 Time of Evaluation: 12:00 - Subjective Subjective: Infectious Disease Follow Up: December 19, 2018 28 yo female presenting with nausea and vomiting. PMHx includes hyperemesis gravidum, currently 9 weeks . She noted blood in her vomit on day of admission. The patient has had multiple visits to [facility] [place] and [facility] [place] for these issues. Tested for Influenza and found to be positive. Started on Tamiflu 12/17/2018. Overall the patient does NOT feel nauseous today. She still reports body aches and fatigue. The patient had fevers up to 102.3 F two nights ago. She is able to eat and hold down food. Objective - Vital Signs/Intake and Output Vital Signs (last 24 hours): Temp Pulse Resp BP Pulse Ox 98.2 F 88 15 103/68 98 12/19/18 06:00 12/19/18 06:00 12/19/18 06:00 12/19/18 06:00 12/19/18 06:00 - Labs Labs: 12/17/18 07:45 12/17/18 07:45 - Constitutional Appears: Non-toxic, No Acute Distress, Chronically Ill - Head Exam Head Exam: ATRAUMATIC, NORMOCEPHALIC - Eye Exam Eye Exam: EOMI, PERRL Pupil Exam: NORMAL ACCOMODATION, PERRL - ENT Exam ENT Exam: Mucous Membranes Moist, Normal External Ear Exam, TM's Normal Bilaterally - Neck Exam Neck Exam: Full ROM, Normal Inspection - Respiratory Exam Respiratory Exam: Clear to Ausculation Bilateral, NORMAL BREATHING PATTERN. absent: Rales, Rhonchi, Wheezes - Cardiovascular Exam Cardiovascular Exam: REGULAR RHYTHM, RRR, +S1, +S2 - GI/Abdominal Exam GI & Abdominal Exam: Soft, Normal Bowel Sounds. absent: Distended, Tenderness - Extremities Exam Extremities Exam: Full ROM, Normal Inspection - Neurological Exam Neurological Exam: Alert, Awake, CN II-XII Intact, Oriented x3 - Psychiatric Exam Psychiatric exam: Normal Affect, Normal Mood - Skin Skin Exam: Intact, Normal Color Assessment and Plan - Assessment and Plan (Free Text) Assessment: 28 yo female who is currently in her 9th week with known hyperemesis gravidum, epigastric pain, questionable UTI. Started on Rocephin for antibiotic care. Leukocytosis up to 19.7 but afebrile. WBC did improve to 8.9. Supportive care. Urine cultures negative. Most of the patient's symptoms are more likely due to her hyperemesis gravidum. The patient was found to have positive Influenza. Started on Tamiflu 12/17/2018. Feeling better compared to yesterday. She can eat and hold down food. Supportive care. Afebrile the past 36 hours. Thank you for allowing me participate in the care of the patient, we will follow with you.
== END 2018-12-19 14:14 | disposition home or self-care (01) | DRG 566 ==
LOC: ED 20:49 → ERH 12-16 01:45 → 5RSO 12-16 03:20 → OBSVTOIN 12-17 14:01
PROVIDERS: ADMIT Hospitalist; ATTEND Hospitalist
DX: O21.0 Mild hyperemesis gravidarum (principal); O99.511 Diseases of the respiratory system complicating pregnancy, first trimester; J11.1 Influenza due to unidentified influenza virus with other respiratory manifestations; O23.41 Unspecified infection of urinary tract in pregnancy, first trimester; Z3A.09 9 weeks gestation of pregnancy; Z83.2 Family history of diseases of the blood and blood-forming organs and certain disorders involving the immune mechanism